=== PATIENT | male | born 1945 | race Two or more races ===

== ENCOUNTER → 2024-06-12 | Outpatient (CLI) | payer OTHER, MEDICAID, SELFPAY ==
--- NOTE | 2024-06-12 15:15 | XR_ITS ---
Examination: Ultrasound soft tissue extremity right buttock TECHNIQUE: By resolution grayscale sonographic images soft tissue right buttock Exam date and time: June 12, 2024 1411 hours INDICATIONS: Palpable lump of the right buttock region with pain radiating to the right leg beginning 2 months ago FINDINGS: Calcification versus solid mass in the buttock region 2.3 x 0.9 x 3.3 cm with dense shadowing IMPRESSION: Solid mass versus dense calcification in the right buttock 2.3 x 0.9 x 3.3 cm, consider CT pelvis without contrast follow-up
== END | disposition home or self-care (01) ==
PROVIDERS: PCP Physician Assistant; Referring Provider Physician Assistant; Visit Provider Physician Assistant
DX: R22.41 Localized swelling, mass and lump, right lower limb (principal)
CPT/HCPCS: 76882

== ENCOUNTER → 2024-09-03 | Outpatient (CLI) | payer MEDICARE, MEDICAID, SELFPAY ==
--- NOTE | 2024-09-03 09:26 | XR_ITS ---
Examination: MRI lumbar spine without contrast Date and time of exam: September 03, 2024 0950 hrs. Indications: Low back pain beginning January 2024 radiating to the right leg Technique: Multiple MRI axial and sagittal sections lumbar spine. Sagittal T2-weighted images, TR 3500, TE 118 T1 weighted transverse sections, TR 688 T8.5, T2-weighted sagittal sections T1 weighted sagittal sections TR 621, TE 30 T2 axial sections, TR 4, 190, TE 84. Findings: Adequate alignment lumbar vertebral bodies on the lateral view No lumbar fracture Adequate marrow signal lumbar vertebral bodies Advanced disc narrowing L5-S1 Diffuse lumbar disc desiccation L5-S1 6 mm central and bilateral paracentral right subarticular disc bulge extending to the right foramen with mild right L5 ganglionic compression L4-L5 3 mm central 6 mm right foraminal disc bulge with mild right L4 ganglionic compression L3-L4 4 mm left foraminal disc bulges but no ganglionic compression L2-L3 6 mm left foraminal disc bulge with mild left L2 ganglionic compression L1-L2 no disc protrusion Impression: Advanced degenerative disc disease L5-S1 L5-S1 6 mm central right subarticular disc bulge with mild right L5 ganglionic compression L4-L5 3 mm central 6 moderate right foraminal disc bulge with mild right L4 ganglionic compression L2-L3 6 mm left foraminal disc bulge mild left L3 ganglionic compression
== END | disposition home or self-care (01) ==
PROVIDERS: PCP Nurse Practitioner Family; Referring Provider Nurse Practitioner Family; Visit Provider Nurse Practitioner Family
DX: M51.379 Other intervertebral disc degeneration, lumbosacral region without mention of lumbar back pain or lower extremity pain (principal); G95.20 Unspecified cord compression
CPT/HCPCS: 72148

== ENCOUNTER 2025-04-03 09:05 | Inpatient (IN) | payer MEDICARE, MEDICAID, SELFPAY ==
[2025-04-03] VITALS (51 sets, daily range): BP systolic 83–163; BP diastolic 44–96; PULSE 61–120; RESP 15–88; TEMP 36–37; O2SAT 89–100; BMI 22.1
--- NOTE | 2025-04-03 09:29 | XR_ITS ---
Examination: PA lateral chest 2 views TECHNIQUE: Upright PA lateral chest 2 views Date and time: March 0939 hours, comparison March 06, 2020 INDICATIONS: Chest pain beginning 3 days ago. FINDINGS: Subtle opacities in the left lung Reduced inspiratory effort Normal heart size IMPRESSION: Suspicious for early diffuse left lung pneumonia
--- NOTE | 2025-04-03 09:29 | EKG_ITS ---
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
--- NOTE | 2025-04-03 09:29 | PD.EDRME ---
Rapid Medical Screening Exam RME Arrival date/time: 04/03/25 09:05 79-year-old male with a history of type 2 diabetes presents to the emergency room with a chief complaint of left-sided 7 out of 10 sternal chest pain and pain when he coughs x 4 days I have greeted and performed a focused initial assessment of this patient. A comprehensive ED assessment and evaluation of the patient, analysis of all test results, and completion of the medical decision making process will be conducted by additional ED providers. Chief Complaint: Nausea/Vomiting/Diarrhea Time Seen by Provider: 04/03/25 09:16 Vital signs: Vital Signs Temperature 98.4 F 04/03/25 09:14 Pulse Rate 75 04/03/25 09:14 Respiratory Rate 18 04/03/25 09:14 Blood Pressure 116/68 04/03/25 09:14 Pulse Oximetry (%) 93 L 04/03/25 09:14 Oxygen Delivery Method Room Air 04/03/25 09:14 Vital signs reviewed by provider: Yes
[2025-04-03 10:16] LABS: Basophils # (Auto) 0.1 Thou/mm3 (0.0-0.2); Basophils % (Auto) 0 % (0-2.5); Eosinophils # (Auto) 0.0 Thou/mm3 (0.0-0.5); Eosinophils % (Auto) 0 % (0-10); Hematocrit 45.5 % (41.0-53.0); Hemoglobin 15.5 g/dL (13.5-16.0); Immature Granulocytes Auto 0.13 Thou/mm3 (0.00-0.00); Lymphocytes # (Auto) 2.0 Thou/mm3 (1.0-4.8); Lymphocytes % (Auto) 12 % (10-50); Mean Corpuscular HGB Conc 34.1 g/dl (31.0-37.0); Mean Corpuscular Hemoglobin 32.2 pg (25.0-35.0); Mean Corpuscular Volume 95 fL (80-100); Monocytes # (Auto) 0.9 Thou/mm3 (0.0-0.8); Monocytes % (Auto) 6 % (0-12); Neutrophils # (Auto) 13.6 Thou/mm3 (1.8-7.7); Neutrophils % (Auto) 81 % (37-80); Nucleated Red Blood Cell # 0.00 Thou/mm3 (0.00-0.00); Nucleated Red Blood Cell % 0 /100 WBC (0); Platelet Count 217 Thou/mm3 (140-440); RDW Standard Deviation 45.6 fL (35.1-43.9); Red Blood Count 4.81 Miln/mm3 (4.50-5.90); White Blood Count 16.7 Thou/mm3 (3.8-10.6)
[2025-04-03 10:32] LABS: INR 1.1 (0.9-1.3); Partial Thromboplastin Time 29.6 Seconds (22.0-36.0); Prothrombin Time 12.0 Seconds (9.0-12.2)
[2025-04-03 10:34] LABS: B-Type Natriuretic Peptide 102 pg/mL (0-100)
[2025-04-03 10:40] LABS: Alanine Aminotransferase 27 U/L (10-49); Albumin, Serum 4.1 gm/dL (3.4-4.8); Albumin/Globulin Ratio 2.0 (1.2-2.2); Alkaline Phosphatase 80 U/L (46-116); Anion Gap 11 (7-16); Aspartate Amino Transferase 120 U/L (0-34); BUN/Creatinine Ratio 19 Ratio (12-20); Bilirubin,Total 1.2 mg/dL (0.3-1.2); Blood Urea Nitrogen 19 mg/dL (9-23); Calcium 9.2 mg/dL (8.3-10.6); Calcium (Corrected) 9.2 mg/dL (8.5-10.1); Carbon Dioxide 27.4 mMol/L (20.0-31.0); Chloride 100 mMol/L (98-107); Creatinine (Component) 1.0 mg/dL (0.6-1.3); Estimated Creatinine Clearance 55.2 mL/min (>60); Globulin 2.1 gm/dL (2.3-3.5); Glucose 189 mg/dL (74-106); Magnesium 2.0 mg/dL (1.6-2.6); Osmolality,Calculated 282 (275-295); Potassium 4.2 mMol/L (3.4-5.1); Sodium 138 mMol/L (136-145); Total Protein 6.2 gm/dL (5.7-8.2); eGFR > 60 See Note
[2025-04-03 10:45] LABS: Troponin I 11.928 ng/mL (0.0-0.045)
[2025-04-03 10:51] LABS: Collection Type, Urine Clean Catch; Squamous Epithelial Cell,Urine 0 /hpf (0-5)
[2025-04-03 11:04] LABS: Bilirubin,Urine Negative (Negative); Blood,Urine Negative (Negative); Clarity,Urine Clear (Clear/Hazy); Color,Urine Yellow (Lt Yel-Yel); Culture Indicated,Urine Not Indicated; Glucose, Urine 2+ (Negative); Ketones,Urine 2+ (Negative); Leukocyte Esterase,Urine Negative (Negative); Nitrite,Urine Negative (Negative); PH,Urine 6.0 (5.0-7.0); Protein,Urine Trace (Neg - Trace); RBC,Urine 3 /hpf (0-3); Specific Gravity,Urine 1.033 (1.001-1.035); Urobilinogen,Urine Negative mg/dL (0.0-1.0); WBC,Urine 1 /hpf (0-5)
--- NOTE | 2025-04-03 11:52 | PD.EDCHEST ---
ED Chest Pain RME/HPI General Chief Complaint: Nausea/Vomiting/Diarrhea Stated Complaint: Low BP, dizzy X 3 days, vomiting X 2 days Time Seen by Provider: 04/03/25 09:16 Arrival date/time: 04/03/25 09:05 RME / HPI RME / HPI narrative: 04/03/25 09:05 79-year-old male with a history of type 2 diabetes presents to the emergency room with a chief complaint of left-sided 7 out of 10 sternal chest pain and pain when he coughs x 4 days I have greeted and performed a focused initial assessment of this patient. A comprehensive ED assessment and evaluation of the patient, analysis of all test results, and completion of the medical decision making process will be conducted by additional ED providers. Related Data Home Medications ?Medication ?Instructions ?Recorded ?Confirmed albuterol sulfate 90 mcg/actuation 1 - 2 inh inhalation QID PRN 03/01/20 04/03/25 aerosol inhaler (Ventolin HFA) Shortness Of Breath Or Wheezing Held on 04/03/25. Instructions: Doctor's Order metformin 500 mg tablet 500 mg PO QDAY 03/01/20 04/03/25 multivitamin (One Daily 1 tab PO QDAY 03/01/20 04/03/25 Multivitamin tablet) ondansetron 4 mg disintegrating 4 mg PO Q6H PRN n/v 03/01/20 04/03/25 tablet Held on 04/03/25. Instructions: Doctor's Order zolpidem 10 mg tablet 10 mg PO HS PRN Insomnia 03/01/20 04/03/25 acetaminophen 325 mg capsule 325 mg PO Q6H PRN fever or pain 04/03/25 04/03/25 atorvastatin 20 mg tablet 20 mg PO QDAY 04/03/25 04/03/25 pregabalin 50 mg capsule (Lyrica) 50 mg PO QDAY 04/03/25 04/03/25 Allergies Allergy/AdvReac Type Severity Reaction Status Date / Time Poultry Allergy Verified 04/03/25 09:11 Course Orders Category Date Time Status EKG (ED ONLY) *Do not use* NOW Care 04/03/25 09:29 Completed Notify provider NOW Care 04/03/25 11:49 Active EKG (ED Only) Stat Exams 04/03/25 09:29 Draft XR chest 2V Stat Exams 04/03/25 09:29 Completed B-Type Natriuretic Peptide Stat Lab 04/03/25 09:52 Completed CBC Stat Lab 04/03/25 09:52 Completed Comprehensive Metabolic Panel Stat Lab 04/03/25 09:52 Completed Magnesium Stat Lab 04/03/25 09:52 Completed Partial Thromboplastin Time AM DRAW Lab 04/05/25 05:00 Ordered Partial Thromboplastin Time Stat Lab 04/03/25 09:52 Completed Prothrombin Time with INR AM DRAW Lab 04/05/25 05:00 Ordered Prothrombin Time with INR Stat Lab 04/03/25 09:52 Completed Troponin I Stat Lab 04/03/25 09:52 Completed Urinalysis, C/S if Indicated Stat Lab 04/03/25 10:46 Completed Heparin Drip Protocol ACS Med 04/03/25 12:00 Ordered Heparin/D5w 25K 250 ML Ivpb [Heparin in D5w Ivpb] 25,000 unit in 250 ml IV 12 units/kg/hr Heparin Inj Med 04/03/25 11:48 Once 3,850 unit IV X1 ONE Vital Signs Vital signs: Vital Signs Temperature 98.4 F 04/03/25 09:14 Pulse Rate 75 04/03/25 09:14 Respiratory Rate 18 04/03/25 09:14 Blood Pressure 116/68 04/03/25 09:14 Pulse Oximetry (%) 93 L 04/03/25 09:14 Oxygen Delivery Method Room Air 04/03/25 09:14 Chest Pain MDM Narrative MDM Narrative:: Patient is a 79-year-old male is in the emergency department concerns for chest pain for the last 3 days. Vital signs and exam as listed. Concern for ACS arrhythmia electrolyte abnormality metabolic disturbance among others. Prior provider Yair patient ordered EKG labs offered medication for symptom relief. Labs with evidence of leukocytosis 16.7, left shift of 81%. Patient hemoglobin is 15.5 platelets are normal. Patient without any coag abnormalities. No significant electrolyte abnormality patient glucose is 189 not in DKA. AST is 120 ALT 27 T. bili normal. Patient troponin 11.9. BNP 102. This appears to be patient's baseline BNP. Chest x-ray with findings concerning for possible early bilateral pneumonia. Urinalysis without evidence of infection. Reassessed patient, patient is complaining of persistent chest pain. Will provide patient with medications for symptom relief., Start patient on a heparin, consult cardiology. Medications / Prescriptions Medication administrations:: Medication Administration History Heparin Sodium (Porcine) (Heparin Sod Inj 5000 Unit/Ml Vial) 3,850 unit 60 unit/kg (3850 unit) IV X1 ONE; Protocol Stop: 04/03/25 11:49 Heparin Sodium/Dextrose (Heparin In D5w Ivpb) 25,000 unit in 250 mls @ 7.699 mls/hr IV .Q24H [facility]; Protocol Stop: 04/17/25 11:59 Discharge Plan Prescriptions/Referrals Prescriptions/Med Rec: No Action metformin 500 mg Tablet 500 mg PO QDAY Patient Comments: states he vomited after zolpidem 10 mg Tablet 10 mg PO HS PRN (Reason: Insomnia) albuterol sulfate [Ventolin HFA] 90 mcg/actuation Hfa Aerosol Inhaler 1 - 2 inh INHALATION QID PRN (Reason: Shortness Of Breath Or Wheezing) multivitamin [One Daily Multivitamin] Tablet 1 tab PO QDAY Patient Comments: take 1 tablet by mouth once daily ondansetron 4 mg tablet,disintegrating 4 mg PO Q6H PRN (Reason: n/v) pregabalin [Lyrica] 50 mg capsule 50 mg PO QDAY atorvastatin 20 mg tablet 20 mg PO QDAY acetaminophen 325 mg capsule 325 mg PO Q6H PRN (Reason: fever or pain) Patient Comments: states he takes prn, 1-2 tab when needed Referrals: Laly Robles [Primary Care Provider] - In 1 week Patient/Caregiver Discharge Instructions Print Language: Bahraini
--- NOTE | 2025-04-03 11:58 | PD.EDCHEST ---
ED Chest Pain RME/HPI General Chief Complaint: Nausea/Vomiting/Diarrhea Stated Complaint: Low BP, dizzy X 3 days, vomiting X 2 days Time Seen by Provider: 04/03/25 09:16 Arrival date/time: 04/03/25 09:05 Limitations: no limitations RME / HPI RME / HPI narrative: 04/03/25 09:05 79-year-old male with a history of type 2 diabetes presents to the emergency room with a chief complaint of left-sided 7 out of 10 sternal chest pain and pain when he coughs x 4 days I have greeted and performed a focused initial assessment of this patient. A comprehensive ED assessment and evaluation of the patient, analysis of all test results, and completion of the medical decision making process will be conducted by additional ED providers. DR. FOOTE MAIN ED EVALUATION 79 year old male with history of hypertension, diabetes, and hyperlipidemia presents to the ED for evaluation of chest pain beginning 2 days ago. Described as aching in sensation that is located most to the left-side of chest with radiation to his back, rating 7/10. Accompanied by cold sweats, feeling clammy, and nausea. Per son, blood pressure this morning while feeling clammy was 60s systolic and shortly after repeated pressure that was 133s systolic. Patient denies any history of similar pain or symptoms. Denies any previous heart attacks or cardiac events. Related Data Home Medications ?Medication ?Instructions ?Recorded ?Confirmed albuterol sulfate 90 mcg/actuation 1 - 2 inh inhalation QID PRN 03/01/20 04/03/25 aerosol inhaler (Ventolin HFA) Shortness Of Breath Or Wheezing Held on 04/03/25. Instructions: Doctor's Order metformin 500 mg tablet 500 mg PO QDAY 03/01/20 04/03/25 multivitamin (One Daily 1 tab PO QDAY 03/01/20 04/03/25 Multivitamin tablet) ondansetron 4 mg disintegrating 4 mg PO Q6H PRN n/v 03/01/20 04/03/25 tablet Held on 04/03/25. Instructions: Doctor's Order zolpidem 10 mg tablet 10 mg PO HS PRN Insomnia 03/01/20 04/03/25 acetaminophen 325 mg capsule 325 mg PO Q6H PRN fever or pain 04/03/25 04/03/25 atorvastatin 20 mg tablet 20 mg PO QDAY 04/03/25 04/03/25 pregabalin 50 mg capsule (Lyrica) 50 mg PO QDAY 04/03/25 04/03/25 Allergies Allergy/AdvReac Type Severity Reaction Status Date / Time Poultry Allergy Verified 04/03/25 09:11 Review of Systems Review of Systems Systems Reviewed: All systems reviewed, normal except as documented Past Medical History Past Medical History CARDIAC: Positive Hypertension ENDOCRINE: Positive Diabetes Mellitus Type 2 Social History SMOKING STATUS: Never smoker ED Exam General Limitations: Present no limitations General appearance: Present alert and other (chronically ill appearing with acute decompensation) Head Head exam: Present atraumatic, normocephalic and normal inspection Eye Eye exam: Present normal appearance, PERRL and EOMI ENT ENT exam: Present normal exam, normal oropharynx and mucous membranes moist Neck Neck exam: Present normal inspection, full ROM and trachea midline Chest Chest inspection: Present normal inspection and symmetric chest wall rise Respiratory Respiratory exam: Present normal lung sounds bilaterally Cardiovascular Cardiovascular exam: Present regular rate, normal rhythm and normal heart sounds Abdominal Exam Abdominal exam: Present soft and normal bowel sounds Extremities Exam Extremities exam: Present normal inspection and full ROM Back Exam Back exam: Present normal inspection and full ROM Neurological Exam Neurological exam: Present alert, oriented X3 and CN II-XII intact Psychiatric Psychiatric exam: Present normal affect and normal mood Skin Skin exam: Present warm, dry, intact and normal color Course Quality Measures none Orders Category Date Time Status Admit to Inpatient Status Routine Admission 04/03/25 12:42 Active Patient Condition Routine Admission 04/03/25 12:42 Ordered EKG (ED ONLY) *Do not use* NOW Care 04/03/25 09:29 Completed Miscellaneous Nursing Order NOW Care 04/03/25 12:42 Active NPO NOW Care 04/03/25 12:46 Active Notify provider NEEDED Care 04/03/25 12:42 Active Notify provider NOW Care 04/03/25 11:49 Active Diet NPO (NOW) Diet 04/03/25 12:46 Active CA echo doppler complete Routine Exams 04/03/25 12:49 Ordered CCL heart cath LT ventricle Routine Exams 04/03/25 12:18 Ordered EKG (ED Only) Stat Exams 04/03/25 09:29 Draft XR chest 2V Stat Exams 04/03/25 09:29 Completed B-Type Natriuretic Peptide Stat Lab 04/03/25 09:52 Completed CBC AM DRAW Lab 04/04/25 05:00 Ordered CBC AM DRAW Lab 04/05/25 05:00 Ordered CBC AM DRAW Lab 04/06/25 05:00 Ordered CBC Stat Lab 04/03/25 09:52 Completed Comprehensive Metabolic Panel AM DRAW Lab 04/04/25 05:00 Ordered Comprehensive Metabolic Panel AM DRAW Lab 04/05/25 05:00 Ordered Comprehensive Metabolic Panel AM DRAW Lab 04/06/25 05:00 Ordered Comprehensive Metabolic Panel Stat Lab 04/03/25 09:52 Completed Magnesium Stat Lab 04/03/25 09:52 Completed Partial Thromboplastin Time AM DRAW Lab 04/05/25 05:00 Ordered Partial Thromboplastin Time Stat Lab 04/03/25 09:52 Completed Prothrombin Time with INR AM DRAW Lab 04/05/25 05:00 Ordered Prothrombin Time with INR Stat Lab 04/03/25 09:52 Completed Thyroid Stimulating Hormone Routine Lab 04/04/25 12:48 Ordered Troponin I Stat Lab 04/03/25 09:52 Completed Urinalysis, C/S if Indicated Stat Lab 04/03/25 10:46 Completed Acetaminophen Tab [Tylenol Tab] Med 04/03/25 12:42 Ordered 650 mg PO Q6H PRN Aspirin Chew Med 04/03/25 11:53 Discontinued 162 mg PO X1 ONE Atropine Inj Vial Med 04/03/25 12:26 Discontinued 1 mg .ROUTE .STK-MED ONE Bivalirudin Ivpb [Angiomax Ivpb] Med 04/03/25 12:29 Discontinued 250 mg IV .STK-MED ONE EPINEPHrine Inj Abboject Med 04/03/25 12:27 Discontinued 1 mg .ROUTE .STK-MED ONE Heparin Inj Med 04/03/25 11:48 Discontinued 3,850 unit IV X1 ONE Heparin* 1000 UNITS/ML- 10 ML [Heparin 1000 UNITS/ML- Med 04/03/25 12:27 Discontinued 10 ML] 30,000 unit .ROUTE .STK-MED ONE Heparin/D5w 25K 250 ML Ivpb [Heparin in D5w Ivpb] Med 04/03/25 12:00 Active 25,000 unit in 250 ml IV 12 units/kg/hr Lidocaine 1% Pf 30 ml [Xylocaine 1% Pf 30 ml] Med 04/03/25 12:27 Discontinued 30 ml .ROUTE .STK-MED ONE Midazolam Inj [Versed Inj] Med 04/03/25 12:26 Discontinued 2 mg .ROUTE .STK-MED ONE Morphine* Inj Med 04/03/25 11:54 Discontinued 2 mg IVP X1 ONE NALOXONE INJ (Vial) [Narcan Inj (Vial)] Med 04/03/25 12:26 Discontinued 0.4 mg .ROUTE .STK-MED ONE Nitroglycerin/D5w 50 MG IVPB [Nitroglycerin in D5w Ivpb Med 04/03/25 12:27 Discontinued ] 50 mg in 250 ml .ROUTE .STK-MED Ondansetron Inj [Zofran Inj] Med 04/03/25 12:42 Ordered 4 mg IVP Q6H PRN PHENYLEPHRINE INJ in NS [Axel-synephrine Inj/Ns] Med 04/03/25 12:27 Discontinued 1,000 mcg .ROUTE .STK-MED ONE Pantoprazole [Protonix] Med 04/04/25 09:00 Ordered 40 mg PO QDAY Senna [Senokot] Med 04/03/25 12:47 Ordered 1 tab PO QDAY PRN Verapamil Inj [Calan Inj] Med 04/03/25 12:27 Discontinued 5 mg .ROUTE .STK-MED ONE cefTRIAXone/D5w 1gm IV premix [Rocephin/D5w 1gm IV Med 04/03/25 11:55 Discontinued premix] 1 gm in 50 ml IV STAT fentaNYL INJ [Sublimaze Inj] Med 04/03/25 12:26 Discontinued 100 mcg .ROUTE .STK-MED ONE flumazeniL [Romazicon Inj] Med 04/03/25 12:27 Discontinued 1 mg .ROUTE .STK-MED ONE Code Status Routine Oth 04/03/25 12:42 Ordered Vital Signs Vital signs: Vital Signs Temperature 98.4 F 04/03/25 09:14 Pulse Rate 75 04/03/25 09:14 Respiratory Rate 18 04/03/25 09:14 Blood Pressure 116/68 04/03/25 09:14 Pulse Oximetry (%) 93 L 04/03/25 09:14 Oxygen Delivery Method Room Air 04/03/25 09:14 Pulse ox is 93% on room air which is adequate. Chest Pain MDM Narrative MDM Narrative:: Vanessa Morse am scribing for and in the presence of Dr. Foote. 11:55a I spoke with churn drill operator Dr. Nguyen. Discussed patients PMHx, HPI, ED course, labs, and EKG results. He advised admitting the patient and agrees to consult. 11:57a I spoke with hospitalist team B regarding admission. Patient data External records reviewed:: [facility] previous records Clinical information provided by:: patient Social determinants that could affect healthcare access:: alcohol use (social drinker) Patient has the following chronic illnesses:: HTN, DM, HLD How is presenting disease/condition affected by chronic disease/condition?: exacerbated by Evaluation data The following diagnostics were reviewed and interpreted by me:: lab results, radiology exam(s) and EKG tracing(s) Lab and/or radiology exams considered but not ordered:: None Interpretation Summary: See MDM Medications / Prescriptions Medications or Prescriptions considered but not ordered:: None Medication administrations:: Medication Administration History Heparin Sodium/Dextrose (Heparin In D5w Ivpb) 25,000 unit in 250 mls @ 7.699 mls/hr IV .Q24H [facility]; Protocol Stop: 04/17/25 11:59 Discontinued Medications Aspirin (Aspirin 81 Mg Chew) 162 mg PO X1 ONE Stop: 04/03/25 11:54 Last Admin: 04/03/25 12:18 Dose: 162 mg Documented By: BY Atropine Sulfate (Atropine Sulf Inj 1 Mg/Ml Vial) Confirm Administered Dose 1 mg .ROUTE .STK-MED ONE Stop: 04/03/25 12:27 Bivalirudin (Bivalirudin Ivpb 250 Mg/ 50 Ml Bottle) Confirm Administered Dose 250 mg IV .STK-MED ONE Stop: 04/03/25 12:30 Epinephrine HCl (Epinephrine Inj 0.1 Mg/Ml Syringe 10ml) Confirm Administered Dose 1 mg .ROUTE .STK-MED ONE Stop: 04/03/25 12:28 Fentanyl Citrate (Fentanyl Cit Inj 50 Mcg/Ml Amp 2ml) Confirm Administered Dose 100 mcg .ROUTE .STK-MED ONE Stop: 04/03/25 12:27 Flumazenil (Flumazenil Inj 0.1 Mg/Ml Vial 10 Ml) Confirm Administered Dose 1 mg .ROUTE .STK-MED ONE Stop: 04/03/25 12:28 Heparin Sodium (Porcine) (Heparin Sod Inj 5000 Unit/Ml Vial) 3,850 unit 60 unit/kg (3850 unit) IV X1 ONE; Protocol Stop: 04/03/25 11:49 Last Admin: 04/03/25 12:33 Dose: 3,850 unit Documented By: BY Co-signed By: BEN Heparin Sodium (Porcine) (Heparin Sod Inj 1000 Unit/Ml Vial 10 Ml) Confirm Administered Dose 30,000 unit .ROUTE .STK-MED ONE Stop: 04/03/25 12:28 Ceftriaxone Sodium/Dextrose (Rocephin/D5w 1gm Iv Premix) 1 gm in 50 mls @ 100 mls/hr IV STAT STA Stop: 04/03/25 12:24 Last Admin: 04/03/25 12:15 Dose: 100 mls/hr Documented By: BY Nitroglycerin/Dextrose (Nitroglycerin In D5w Ivpb) Confirm Administered Dose 50 mg in 250 mls @ ud .ROUTE .STK-MED ONE Stop: 04/03/25 12:28 Lidocaine HCl (Lidocaine Inj Pf 1% 30 Ml Vial) Confirm Administered Dose 30 ml .ROUTE .STK-MED ONE Stop: 04/03/25 12:28 Midazolam HCl (Midazolam Inj 1 Mg/Ml Vial 2 Ml) Confirm Administered Dose 2 mg .ROUTE .STK-MED ONE Stop: 04/03/25 12:27 Morphine Sulfate (Morphine Sulf Inj 4 Mg/Ml Vial) 2 mg IVP X1 ONE Stop: 04/03/25 11:55 Last Admin: 04/03/25 12:19 Dose: 2 mg Documented By: BY Naloxone HCl (Naloxone Inj 0.4 Mg/Ml Vial) Confirm Administered Dose 0.4 mg .ROUTE .STK-MED ONE Stop: 04/03/25 12:27 Phenylephrine HCl (Phenylephrine Inj In Ns 100 Mcg/Ml 10 Ml Syringe) Confirm Administered Dose 1,000 mcg .ROUTE .STK-MED ONE Stop: 04/03/25 12:28 Verapamil HCl (Verapamil Inj 2.5 Mg/Ml Vial 2 Ml) Confirm Administered Dose 5 mg .ROUTE .STK-MED ONE Stop: 04/03/25 12:28 See above Consultations Consultation(s) initiated? (list below): Yes Consultation #1 (Physician, Specialty, Details): See MDM Diagnosis Most likely diagnosis given after review of the tests above:: NSTEMI PNA Chest pain Admission Indicated Admission indicated?: indicated Admission Request Was there a request for admission?: Yes Admission Attestation Admission request attestation: Discussed case with [] from Hospitalist service regarding admission. Discussed patients ED course, exam findings, labs, and radiology results. The Hospitalist [agrees,declines] to accept the patient for admission. Disposition Plan Disposition Plan: Admit Critical Care Time Critical Care Time Critical Care Time: Yes Total Critical Care Time (min.): 35 Attestation: The high probability of sudden, clinically significant deterioration in the patient's condition required the highest level of my preparedness to intervene urgently. The services I provided to this patient were to treat and/or prevent clinically significant deterioration. Services included the following: chart data review, reviewing nursing notes and/or old charts, documentation time, senior recruitment consultant collaboration regarding findings and treatment options, medication orders and management, direct patient care, vital sign assessments and ordering, interpreting and reviewing diagnostic studies and lab tests. Aggregate critical care time includes only time during which I was engaged in work directly related to the patient's care, as described above, whether at bedside or elsewhere in the Emergency Department. It did not include time spent performing other reported procedures or the services of residents, students, nurses or physician assistants. Discharge Plan Plan Patient Disposition: Admit Acute Care w/in Hospital Prescriptions/Referrals Prescriptions/Med Rec: No Action metformin 500 mg Tablet 500 mg PO QDAY Patient Comments: states he vomited after zolpidem 10 mg Tablet 10 mg PO HS PRN (Reason: Insomnia) albuterol sulfate [Ventolin HFA] 90 mcg/actuation Hfa Aerosol Inhaler 1 - 2 inh INHALATION QID PRN (Reason: Shortness Of Breath Or Wheezing) multivitamin [One Daily Multivitamin] Tablet 1 tab PO QDAY Patient Comments: take 1 tablet by mouth once daily ondansetron 4 mg tablet,disintegrating 4 mg PO Q6H PRN (Reason: n/v) pregabalin [Lyrica] 50 mg capsule 50 mg PO QDAY atorvastatin 20 mg tablet 20 mg PO QDAY acetaminophen 325 mg capsule 325 mg PO Q6H PRN (Reason: fever or pain) Patient Comments: states he takes prn, 1-2 tab when needed Referrals: Laly Robles [Primary Care Provider] - In 1 week Problem List Clinical Impression: Non-ST elevation [place] (NSTEMI), Chest pain, Pneumonia Patient/Caregiver Discharge Instructions Print Language: Swedish Stand Alone Forms: Jessica Award Info., Patient Portal Info Letter
[2025-04-03] MEDS: cefTRIAXone/D5w 1gm IV premix 1 GM/50 ML BAG IV (12:15)
[2025-04-03] MEDS: ASPIRIN 81 MG CHEW 162 MG PO (12:18)
[2025-04-03] MEDS: MORPHINE SULF INJ 4 MG/ML VIAL 2 MG IVP (12:19)
[2025-04-03] MEDS: HEPARIN SOD INJ 5000 UNIT/ML VIAL 3850 UNIT IV (12:33)
--- NOTE | 2025-04-03 12:37 | PC.NURSE ---
patient just picked up for manager cath lab by surgery dept , report given to surgery
--- NOTE | 2025-04-03 12:50 | PD.RESHP ---
Documentation for date of: 04/03/25 [facility] History of Present Illness Chief complaint: chest pain History of present illness: Patient is Eritrean-speaking and history is taken with the help of insole beveler A 79-year-old male with significant past medical history of diabetes mellitus, hypertension, hyperlipidemia, history of COVID infection presented to the hospital with chief complaints of history of chest pain since 3 days. Chest pain is located in the left side, radiating to the left shoulder, on and off, denies associated shortness of breath, nausea, vomiting, sweating. Denies any aggravating and relieving factors and does not change with inspiration or change in the position. Denies any similar complaints in the past. Denies fever, nausea, vomitings, abdominal pain, cough, syncopal episodes, orthopnea, PND. Denies any previous cardiac history. ED course: - Vitals at the time of admission are stable - Labs at the time of admission are significant for WBC 16.7, troponin 11.9-8, AST 120. - Urinalysis significant for 2+ glucosuria and 2+ ketones. - EKG at the time of admission showed normal sinus rhythm with left axis deviation, T wave inversions in lead III, aVF, poor R wave progression. - Chest x-ray at the time of admission showed mild infiltrates in the left lung Past medical history: Diabetes mellitus, hypertension, hyperlipidemia, COVID infection Past surgical history: Not significant Social history: Lives at home in [place] with his family. Denies smoking, other illicit drug abuse. Reported that he stopped consuming alcohol many years ago. Review of Systems Review of Systems Systems Reviewed: All systems reviewed, normal except as documented Past Medical History Past Medical History CARDIAC: Positive Hypertension ENDOCRINE: Positive Diabetes Mellitus Type 2 Social History SMOKING STATUS: Never smoker Exam Vital Signs Temp Pulse Resp BP Pulse Ox O2 Del Method 98.5 F 63 18 117/61 97 Room Air 04/03/25 11:13 04/03/25 12:14 04/03/25 12:14 04/03/25 12:14 04/03/25 12:14 04/03/25 12:14 Narrative Exam General: Awake. HEENT: Normocephalic, atraumatic, mucous membranes moist. Heart: Regular rate and rhythm, no murmurs. Lungs: Clear to auscultation with no wheezing or crackles. Abdomen: Soft, nondistended, nontender, positive bowel sounds. ?No guarding or rebound tenderness. Neurologic: Alert and oriented x3, no gross neurological deficit, and patient able to move all 4 extremities. Extremities: No edema. Skin: No rash or ecchymoses. Results: Labs 04/04/25 04:48 04/04/25 04:48 Labs: Short CBC 04/03/25 Range/Units 09:52 WBC 16.7 H (3.8-10.6) Thou/mm3 Hgb 15.5 (13.5-16.0) g/dL Hct 45.5 (41.0-53.0) % Plt Count 217 (140-440) Thou/mm3 BMP 04/03/25 09:52 Sodium 138 Potassium 4.2 Chloride 100 Carbon Dioxide 27.4 BUN 19 Creatinine 1.0 Glucose 189 H Calcium 9.2 Cardiac Enzymes 04/03/25 Range/Units 09:52 Troponin I 11.928 H* (0.0-0.045) ng/mL Liver Function 04/03/25 Range/Units 09:52 Total Bilirubin 1.2 (0.3-1.2) mg/dL AST 120 H (0-34) U/L ALT 27 (10-49) U/L Alkaline Phosphatase 80 (46-116) U/L Albumin 4.1 (3.4-4.8) gm/dL Urine 04/03/25 Range/Units 10:46 Urine Color Yellow (Lt Yel-Yel) Urine Clarity Clear (Clear/Hazy) Urine pH 6.0 (5.0-7.0) Ur Specific [place] 1.033 (1.001-1.035) Urine Protein Trace (Neg - Trace) Urine Glucose (UA) 2+ A (Negative) Quality Measures Quality Measures none Advance care planning discussed with:: patient Medications Home Medications and Allergies Home Medications ?Medication ?Instructions ?Recorded ?Confirmed ?Type albuterol sulfate 90 mcg/actuation 1 - 2 inh inhalation QID PRN 03/01/20 04/03/25 History aerosol inhaler (Ventolin HFA) Shortness Of Breath Or Wheezing Held on 04/03/25. Instructions: Doctor's Order metformin 500 mg tablet 500 mg PO QDAY 03/01/20 04/03/25 History multivitamin (One Daily 1 tab PO QDAY 03/01/20 04/03/25 History Multivitamin tablet) ondansetron 4 mg disintegrating 4 mg PO Q6H PRN n/v 03/01/20 04/03/25 History tablet Held on 04/03/25. Instructions: Doctor's Order zolpidem 10 mg tablet 10 mg PO HS PRN Insomnia 03/01/20 04/03/25 History acetaminophen 325 mg capsule 325 mg PO Q6H PRN fever or pain 04/03/25 04/03/25 History atorvastatin 20 mg tablet 20 mg PO QDAY 04/03/25 04/03/25 History pregabalin 50 mg capsule (Lyrica) 50 mg PO QDAY 04/03/25 04/03/25 History Allergies Allergy/AdvReac Type Severity Reaction Status Date / Time Poultry Allergy Verified 04/03/25 09:11 Visit Medications Acetaminophen (Acetaminophen 325 Mg Tablet) 650 mg PO Q6H PRN PRN Reason: Fever >101.5 Stop: 05/03/25 12:41 Heparin Sodium/Dextrose (Heparin In D5w Ivpb) 25,000 unit in 250 mls @ 7.699 mls/hr IV .Q24H BENNETT; Protocol Stop: 04/17/25 11:59 Ondansetron HCl (Ondansetron Inj 2 Mg/Ml Inj 2 Ml) 4 mg IVP Q6H PRN; Protocol PRN Reason: NAUSEA OR VOMITING Stop: 05/03/25 12:41 Pantoprazole Sodium (Pantoprazole 40 Mg Tablet) 40 mg PO QDAY BENNETT Stop: 05/04/25 08:59 Sennosides (Senna Tablet) 1 tab PO QDAY PRN; Protocol PRN Reason: constipation Stop: 05/03/25 12:46 Discontinued Medications Aspirin (Aspirin 81 Mg Chew) 162 mg PO X1 ONE Stop: 04/03/25 11:54 Last Admin: 04/03/25 12:18 Dose: 162 mg Heparin Sodium (Porcine) (Heparin Sod Inj 5000 Unit/Ml Vial) 3,850 unit 60 unit/kg (3850 unit) IV X1 ONE; Protocol Stop: 04/03/25 11:49 Last Admin: 04/03/25 12:33 Dose: 3,850 unit Ceftriaxone Sodium/Dextrose (Rocephin/D5w 1gm Iv Premix) 1 gm in 50 mls @ 100 mls/hr IV STAT STA Stop: 04/03/25 12:24 Last Admin: 04/03/25 12:15 Dose: 100 mls/hr Morphine Sulfate (Morphine Sulf Inj 4 Mg/Ml Vial) 2 mg IVP X1 ONE Stop: 04/03/25 11:55 Last Admin: 04/03/25 12:19 Dose: 2 mg Assessment & Plan Plan A 79-year-old male with significant past medical history of diabetes mellitus, hypertension, hyperlipidemia, history of COVID infection presented to the hospital with chief complaints of history of chest pain since 3 days # NSTEMI type I - Patient presented to the hospital with chief complaints of chest pain since 3 days - Chest pain mainly located in the left side and reported radiating to the shoulder. On and off without any other associated symptoms - Vitals at the time of admission are stable - EKG at the time of admission showed normal sinus rhythm with left axis deviation, T wave inversions in lead II and III, poor R wave progression - Troponin at the time of admission is 11.928 Plan - Patient was started on heparin drip and loading dose of aspirin 325 mg is given - Consulted special warfare boat operator, Dr. Nguyen - Patient is taken to Criminal Justice Lawyer # Leukocytosis, reactive versus infectious - WBC at the time of admission is 16.7 - Patient denies history of fever, shortness of breath, nausea, vomitings, abdominal pain, headache Plan - Patient is started on ceftriaxone 1 g IV daily in view of suspected underlying underlying pneumonia due to infiltrates found on chest x-ray # Diabetes mellitus - Glucose at the time of admission is 189 - Patient is using metformin 500 mg daily as per med rec Plan - Ordered HbA1c - Started on insulin sliding scale # Hypertension - Vitals at the time of admission are stable Plan - Will continue to monitor blood pressures and add antihypertensives as needed # Hyperlipidemia - Patient is using atorvastatin 20 mg once daily - Lipid profile is ordered Plan - Will start on atorvastatin 40 mg at bedtime Hospital Maintenance: Dispo: Tele DVT ppx: Heparin drip GI ppx: Protonix Diet: NPO IV lines: peripheral Code status: Full Patient plan of care was discussed with the attending physician, Dr. Klaudia Ko, PGY2 Attending Provider Attestation/Addendum I have discussed and was present for the essential components of the history, physical examination, diagnosis, and treatment plan with the resident. I agree with the patient's care as documented by the resident and amended herein by me. Kuldeep Rudolph DO. Although this document has been carefully reviewed, there may still be some phonetic and other typographical errors. These errors are purely grammatical due to imperfections in the software program and should not be construed in any way to compromise the substance of the patient's medical care during this visit.
[2025-04-03 13:30] LABS: Cardiac Risk Estimate 2.1 RATIO (4.0-6.7); Cholesterol 124 mg/dL (132-200); HDL Cholesterol 59 mg/dL (40-60); LDL Cholesterol,Calculated 51 mg/dL (0-130); Triglycerides 70 mg/dL (30-150)
[2025-04-03] MEDS: EPTIFIBATIDE IVPB 75 MG/100 ML VIAL 10.265 MG IV (14:07)
--- NOTE | 2025-04-03 14:10 | ESOP_ITS ---
Cardiac Cath Procedure Procedure Narrative Procedure date 04/03/2025 Title of the procedure 1.left heart catheterization 2.left coronary angiogram 3.right coronary angiogram 4.left ventriculogram 5.conscious sedation 6.radiographic interpretation supervision 7.ultrasound guidance for right Femoral access 8.angioplasty and stent placement of the RCA 9.temporary transvenous pacemaker placement 10.intracoronary nitroglycerin and adenosine infusion Indication for the procedure This is a 79-year-old gentleman with past medical history of hypertension diabetes hyperlipidemia Complains of recurrent anterior chest pain started earlier in the day today Initial EKG showed [address] elevation in the lead aVF Patient was complaining of ongoing chest pain Therefore we decided to do cardiac cath and coronary angiogram For STEMI Procedure This was done in the cardiac lab under current electrocardiographic monitoring Intermittent blood pressure monitoring right radial access obtained using modified Seldinger technique and ultrasound guidance 6 [place] sheath was placed We attempted to obtain radial access however due to heavy calcification the guidewire would not advance beyond the brachial point Therefore we decided to proceed with right femoral access JL 4 catheter used for selective renal left coronary artery JR4 catheter used for selective right coronary artery Pigtail catheter used for left ventriculogram Hemodynamics Normal Approximate ejection fraction 55% End-diastolic pressure was 10 mmHg There is no gradient across the aortic valve Coronary anatomy 1.left main coronary artery appears normal 2.left anterior descending artery does not seem to have any significant lesion 3.diagonal appears to have luminal irregularities 4.circumflex does not seem to have any significant lesion 5.obtuse marginal appears to be normal 6.right coronary is a dominant vessel that is occluded 100% in the midsegment Conclusion Occluded right coronary artery We will proceed with intervention Balloon angioplasty and stent placement of the right coronary artery JR4 guiding catheter used to obtain coaxial access Pharmacy Operations Manager 50 wire was used to cross the lesion 2 x 12 mm balloon was used to predilate the occluded region Subsequently 3 x 38 mm stent was placed across the lesion and dilated up to 9 breezy At this point patient developed no reflow phenomenon At this point we proceeded to do nitroglycerin intracoronary, adenosine intracoronary Patient blood pressure dropped to 50/40 Patient's heart rate dropped to 35 junctional rhythm A temporary transvenous pacemaker was placed to the right femoral vein The heart rate was set at 100 bpm With this treatment the patient's blood pressure and heart rate improved Repeat angiogram reveals NAOMI-3 flow to the distal circulation At this point 3 x 20 mm noncompliant balloon was used to post dilate the stent up to 15 breezy Post angiogram reveals adequate expansion of the entire length of the stent Conclusion Successful angioplasty and stent placement to mid RCA
--- NOTE | 2025-04-03 14:18 | PD.IMCONS ---
HPI Data of Consult Primary Care Provider: Laly Robles Consult Narrative History of present illness: This is a 79-year-old gentleman with past medical history of hypertension diabetes hyperlipidemia Patient started having chest pain 2 days ago subsequently it improved initial episode was associated with some diaphoresis as per the son Subsequently the pain started again today morning therefore patient was brought to the emergency room In the emergency room patient was complaining of 7 out of 10 chest pain Initial blood pressure 117/61 Heart rate was 63 EKG shows Q waves in the inferior leads with T inversion Half to [address] elevation noted in lead III, patient's troponin is 11 Therefore STEMI alert was called patient was taken to the Breaker Machine Operator cc:: cc: Meds Home Medications and Allergies Home Medications ?Medication ?Instructions ?Recorded ?Confirmed ?Type albuterol sulfate 90 mcg/actuation 1 - 2 inh inhalation QID PRN 03/01/20 04/03/25 History aerosol inhaler (Ventolin HFA) Shortness Of Breath Or Wheezing Held on 04/03/25. Instructions: Doctor's Order metformin 500 mg tablet 500 mg PO QDAY 03/01/20 04/03/25 History multivitamin (One Daily 1 tab PO QDAY 03/01/20 04/03/25 History Multivitamin tablet) ondansetron 4 mg disintegrating 4 mg PO Q6H PRN n/v 03/01/20 04/03/25 History tablet Held on 04/03/25. Instructions: Doctor's Order zolpidem 10 mg tablet 10 mg PO HS PRN Insomnia 03/01/20 04/03/25 History acetaminophen 325 mg capsule 325 mg PO Q6H PRN fever or pain 04/03/25 04/03/25 History atorvastatin 20 mg tablet 20 mg PO QDAY 04/03/25 04/03/25 History pregabalin 50 mg capsule (Lyrica) 50 mg PO QDAY 04/03/25 04/03/25 History Allergies Allergy/AdvReac Type Severity Reaction Status Date / Time Poultry Allergy Verified 04/03/25 09:11 Exam Vital Signs Temp Pulse Resp BP Pulse Ox O2 Del Method 98.5 F 63 18 117/61 97 Room Air 04/03/25 11:13 04/03/25 12:14 04/03/25 12:14 04/03/25 12:14 04/03/25 12:14 04/03/25 12:14 Routine HEENT Exam Head: Present normocephalic and atraumatic Eye: Present EOMI and PERRL ENT: Present mucous membranes moist Routine Neck Exam Neck: Present supple and trachea midline Routine Respiratory Exam Respiratory: Present chest non-tender, lungs clear, normal breath sounds and no resp distress Routine Cardiovascular Exam Cardiovascular: Present RRR Routine Abdominal Exam Abdominal: Present soft and normoactive bowel sounds Routine Extremities Exam Extremities: Present full ROM Routine Skin Exam Skin: Present intact, dry and warm Routine Neurological Exam Neurological: Present alert, oriented X3 and CN II-XII intact Routine Psychiatric Exam Psychiatric: Present normal affect and normal thought process Results Labs 04/03/25 09:52 04/03/25 09:52 Labs: Short CBC 04/03/25 Range/Units 09:52 WBC 16.7 H (3.8-10.6) Thou/mm3 Hgb 15.5 (13.5-16.0) g/dL Hct 45.5 (41.0-53.0) % Plt Count 217 (140-440) Thou/mm3 BMP 04/03/25 09:52 Sodium 138 Potassium 4.2 Chloride 100 Carbon Dioxide 27.4 BUN 19 Creatinine 1.0 Glucose 189 H Calcium 9.2 Cardiac Enzymes 04/03/25 Range/Units 09:52 Troponin I 11.928 H* (0.0-0.045) ng/mL Liver Function 04/03/25 Range/Units 09:52 Total Bilirubin 1.2 (0.3-1.2) mg/dL AST 120 H (0-34) U/L ALT 27 (10-49) U/L Alkaline Phosphatase 80 (46-116) U/L Albumin 4.1 (3.4-4.8) gm/dL Urine 04/03/25 Range/Units 10:46 Urine Color Yellow (Lt Yel-Yel) Urine Clarity Clear (Clear/Hazy) Urine pH 6.0 (5.0-7.0) Ur Specific [place] 1.033 (1.001-1.035) Urine Protein Trace (Neg - Trace) Urine Glucose (UA) 2+ A (Negative) Assessment and Plan Assessment and plan (1) Acute myocardial infarction: Status: Acute (2) Coronary artery disease: Status: Acute (3) Hypertension: Status: Acute (4) Diabetes 1.5, managed as type 2: Status: Acute (5) Hyperlipidemia: Status: Acute (6) Chest pain: Status: Acute Additional Assessment & Plan Additional Plan: In view of patient's ongoing chest pain 7 out of 10 EKG showing Q waves and T inversion with possible ST elevation in lead III We will proceed with cardiac cath and coronary angiogram urgently Procedure risk-benefit was explained to the patient
--- NOTE | 2025-04-03 15:23 | PD.INTCONS ---
HPI - Warehouse Person Consult Data of Consult Requesting Physician: Viktoria Hope MD Primary Care Provider: Laly Robles Consult Narrative History of present illness: This is a 79-year-old male Italian-speaking who presents to the ER for chest pain. Apparently he had been experiencing chest pain for the last 3 days. It was located on the left side of his chest and has been constant with no radiation however he did tell the admitting team that he had radiation to the left arm.. States that he did feel nauseous and clammy at home. Pain became worse reason for which he presented to the ER today. At time of arrival to the ER he was noted to have positive troponins of 11 with some EKG changes. Cardiology consult was called and the patient was taken to the Insole Doubler. The patient had a stent placed to the RCA. He became bradycardic during the procedure and was temporarily placed on a pacer. However he then developed A-fib which was treated the patient is currently in sinus rhythm. Upon arrival to the ICU the patient was noted to have a large right groin hematoma. He is on an Integrilin drip. PMH: Diabetes, hypertension, dyslipidemia PSH: Denies smoking or alcohol use ROS: As per HPI otherwise negative cc:: cc: Viktoria Hope MD Critical Care Note Critical care time (min.): 68 Meds Home Medications and Allergies Home Medications ?Medication ?Instructions ?Recorded ?Confirmed ?Type albuterol sulfate 90 mcg/actuation 1 - 2 inh inhalation QID PRN 03/01/20 04/03/25 History aerosol inhaler (Ventolin HFA) Shortness Of Breath Or Wheezing Held on 04/03/25. Instructions: Doctor's Order metformin 500 mg tablet 500 mg PO QDAY 03/01/20 04/03/25 History multivitamin (One Daily 1 tab PO QDAY 03/01/20 04/03/25 History Multivitamin tablet) ondansetron 4 mg disintegrating 4 mg PO Q6H PRN n/v 03/01/20 04/03/25 History tablet Held on 04/03/25. Instructions: Doctor's Order zolpidem 10 mg tablet 10 mg PO HS PRN Insomnia 03/01/20 04/03/25 History acetaminophen 325 mg capsule 325 mg PO Q6H PRN fever or pain 04/03/25 04/03/25 History atorvastatin 20 mg tablet 20 mg PO QDAY 04/03/25 04/03/25 History pregabalin 50 mg capsule (Lyrica) 50 mg PO QDAY 04/03/25 04/03/25 History Allergies Allergy/AdvReac Type Severity Reaction Status Date / Time Poultry Allergy Verified 04/03/25 09:11 Exam Vital Signs Temp Pulse Resp BP Pulse Ox O2 Del Method 97.0 F 98 19 117/71 96 Room Air 04/03/25 14:47 04/03/25 15:15 04/03/25 15:15 04/03/25 15:15 04/03/25 15:15 04/03/25 14:47 Narrative Exam General-no acute distress, awake alert and oriented, normal body habitus HEENT-normocephalic, atraumatic, sclera anicteric, oral mucosa is dry, poor dentition, there appears to be a sublingual hematoma present with minimal oozing around the patient's posterior teeth, EOMI Chest-there is bilateral expiratory wheezes greater on the left, heart regular and rhythmic, no bruits or murmurs, no increased work of breathing, no use of accessory muscles Abdomen-soft, nontender, bowel sounds present, no rebound or guarding Extremities-pulses are palpable, no clubbing or mottling, no focal deficits, there is a right Fem sheath present with with a large hematoma at the site Drips integrlin Physical Exam Completion Physical Exam Complete?: Yes Results - Warehouse Person Labs 04/04/25 04:48 04/04/25 04:48 Labs: Short CBC 04/03/25 Range/Units 09:52 WBC 16.7 H (3.8-10.6) Thou/mm3 Hgb 15.5 (13.5-16.0) g/dL Hct 45.5 (41.0-53.0) % Plt Count 217 (140-440) Thou/mm3 BMP 04/03/25 09:52 Sodium 138 Potassium 4.2 Chloride 100 Carbon Dioxide 27.4 BUN 19 Creatinine 1.0 Glucose 189 H Calcium 9.2 Cardiac Enzymes 04/03/25 Range/Units 09:52 Troponin I 11.928 H* (0.0-0.045) ng/mL Liver Function 04/03/25 Range/Units 09:52 Total Bilirubin 1.2 (0.3-1.2) mg/dL AST 120 H (0-34) U/L ALT 27 (10-49) U/L Alkaline Phosphatase 80 (46-116) U/L Albumin 4.1 (3.4-4.8) gm/dL Urine 04/03/25 Range/Units 10:46 Urine Color Yellow (Lt Yel-Yel) Urine Clarity Clear (Clear/Hazy) Urine pH 6.0 (5.0-7.0) Ur Specific [place] 1.033 (1.001-1.035) Urine Protein Trace (Neg - Trace) Urine Glucose (UA) 2+ A (Negative) Assessment & Plan Problem List (1) Acute myocardial infarction: Status: Acute (2) Coronary artery disease: Status: Acute (3) Hypertension: Status: Acute (4) Diabetes 1.5, managed as type 2: Status: Acute (5) Hyperlipidemia: Status: Acute (6) Chest pain: Status: Acute Additional Assessment Additional Assessment: In summary this is a 79-year-old male admitted to the ICU status post PCI with stent to the RCA a/p CALCULUS PROFESSOR stable CV IN type I/ CAD- pt is s/p PCI with angioplasty and stent to RCA - on ASA and integrilin - atorvastatin increased to 80 today - hematoma noted at the site of fem sheath - pressure applied and cardiology notified - doppler of R femoral artery in AM Resp Dyspnea- expiratory wheeze with no dx of asthma or copd. pulmonary v cardiogenic - give duoneb and eval - will consider lasix x1 Renal stable GI Transaminitis- in the setting of [place] Endo DM- on metformin at home, hold for now -SSI if needed Heme Leukocytosis- appears to have been present since 2019 however no labs between 2019 and today - unclear chronicity ID stable case d/w ICU team and cardiology labs, imaging, records reviewed ~68min required for eval, exam, review, intervention, dicussion and formulation of POC Additional Plan Additional Plan: PLAN: See MD orders and discussion above. Will continue supportive care of the organ system problems, diagnoses, and failures noted above. [A central line continues to be necessary for infusion of medications and IV fluids, it is to be removed when other adequate venous access is accomplished.] [Cannot be safely managed without restraints as potential for harm secondary to inadvertent movement and loss of tubes and lines outweighs the burdens of restraint.] This patient is critically ill and required [] minutes of my time to provide documentation, evaluate, manage and maintain or prevent deterioration of the organ systems and problems noted above. This critical care time does not include time I spent performing procedures that are reported separately. [If mckay catheter present, it remains necessary to monitor urine output continuously, and/or divert urine from the skin. It will be removed per policy when it is not needed for these purposes.] Provider Notation Provider Notation: Although this document has been carefully reviewed, there may still be some phonetic and other typographical errors. These errors are purely grammatical due to imperfections in the software program and should not be construed in any way to compromise the substance of the patient's medical care during this visit. Thank you for the opportunity and privilege in assisting you with this patient's care and management.
--- NOTE | 2025-04-03 15:55 | PC.NURSE ---
when patient was taken to ICU and transferred over to bed a hematoma did develop on the right groin, i did apply pressure to break down the hematoma, after some time of holding pressure the hematoma got smaller and soft, before i left the ICU i verified that there was no longer a hematoma on the right groin wants to continue Integrilin for 12hours (medication was started at 14:07 on 04/03/25) continue aspirin 81mg and plavix 75mg daily starting tomorrow at 0900 04/04/25
[2025-04-03 16:37] LABS: Basophils # (Auto) 0.0 Thou/mm3 (0.0-0.2); Basophils % (Auto) 0 % (0-2.5); Eosinophils # (Auto) 0.0 Thou/mm3 (0.0-0.5); Eosinophils % (Auto) 0 % (0-10); Hematocrit 41.8 % (41.0-53.0); Hemoglobin 14.2 g/dL (13.5-16.0); Immature Granulocytes Auto 0.19 Thou/mm3 (0.00-0.00); Lymphocytes # (Auto) 1.2 Thou/mm3 (1.0-4.8); Lymphocytes % (Auto) 7 % (10-50); Mean Corpuscular HGB Conc 34.0 g/dl (31.0-37.0); Mean Corpuscular Hemoglobin 31.8 pg (25.0-35.0); Mean Corpuscular Volume 94 fL (80-100); Monocytes # (Auto) 1.2 Thou/mm3 (0.0-0.8); Monocytes % (Auto) 7 % (0-12); Neutrophils # (Auto) 15.1 Thou/mm3 (1.8-7.7); Neutrophils % (Auto) 85 % (37-80); Nucleated Red Blood Cell # 0.00 Thou/mm3 (0.00-0.00); Nucleated Red Blood Cell % 0 /100 WBC (0); Platelet Count 192 Thou/mm3 (140-440); RDW Standard Deviation 45.4 fL (35.1-43.9); Red Blood Count 4.46 Miln/mm3 (4.50-5.90); White Blood Count 17.7 Thou/mm3 (3.8-10.6)
[2025-04-03] MEDS: FUROSEMIDE INJ 10 MG/ML VIAL 2 ML 20 MG IVP (19:31)
[2025-04-03] MEDS: ONDANSETRON INJ 2 MG/ML INJ 2 ML 4 MG IVP (19:55)
[2025-04-03] MEDS: ATORVASTATIN CALCIUM 20 MG TABLET 80 MG PO (20:30)
[2025-04-03] MEDS: INSULIN LISPRO (AdmeLOG) 1 UNIT/0.01 ML UNIT SC (20:30)
[2025-04-03] MEDS: ZOLPIDEM 5 MG TABLET 10 MG PO (20:35)
--- NOTE | 2025-04-03 20:44 | PC.NURSE ---
femstop applied by dr grover at bedside, per keep at current pressure for 1 hour and release pressure slowly, then leave femstop on for 3 hours
--- NOTE | 2025-04-03 21:55 | PC.NURSE ---
2125 FEMSTOP RIGHT GROIN REMOVED WITH CHARGE KIESHA AT BEDSIDE. PRESSURE DRESSING 2X2 GAUZE WITH TEGADERM APPLIED, PT TOLERATED WELL.
[2025-04-03] MEDS: ALBUTEROL/IPRATROPIUM (Duoneb) RT SOL 3 ML NEBU INH (22:48)
[2025-04-04] VITALS (38 sets, daily range): BP systolic 87–154; BP diastolic 49–89; PULSE 74–119; RESP 17–32; TEMP 35.8–37; O2SAT 88–100; BMI 20.7
[2025-04-04] MEDS: ALBUTEROL/IPRATROPIUM (Duoneb) RT SOL 3 ML NEBU INH ×6 (02:07→23:30)
--- NOTE | 2025-04-04 06:00 | XR_ITS ---
Examination: Ultrasound soft tissue extremity right groin Technique: Grayscale sonographic images soft tissue right groin Date and time: April 04, 2025, 0857 hrs. Indications: Bruising in the right groin post angiogram this week Technique: Doppler sonographic assessment of the right lower extremity including assessment peak systolic velocities as well as ankle brachial index Findings: Monophasic arterial flow right common femoral, superficial femoral, popliteal, peroneal, posterior tibial and dorsalis pedis arteries Ankle brachial index 1.0 No pseudoaneurysm Impression: No critical arterial stenoses. Negative for pseudoaneurysm or hematoma
[2025-04-04 06:21] LABS: Basophils # (Auto) 0.1 Thou/mm3 (0.0-0.2); Basophils % (Auto) 0 % (0-2.5); Eosinophils # (Auto) 0.0 Thou/mm3 (0.0-0.5); Eosinophils % (Auto) 0 % (0-10); Hematocrit 39.5 % (41.0-53.0); Hemoglobin 13.4 g/dL (13.5-16.0); Immature Granulocytes Auto 0.10 Thou/mm3 (0.00-0.00); Lymphocytes # (Auto) 1.8 Thou/mm3 (1.0-4.8); Lymphocytes % (Auto) 9 % (10-50); Mean Corpuscular HGB Conc 33.9 g/dl (31.0-37.0); Mean Corpuscular Hemoglobin 32.5 pg (25.0-35.0); Mean Corpuscular Volume 96 fL (80-100); Monocytes # (Auto) 1.9 Thou/mm3 (0.0-0.8); Monocytes % (Auto) 10 % (0-12); Neutrophils # (Auto) 16.0 Thou/mm3 (1.8-7.7); Neutrophils % (Auto) 81 % (37-80); Nucleated Red Blood Cell # 0.00 Thou/mm3 (0.00-0.00); Nucleated Red Blood Cell % 0 /100 WBC (0); Platelet Count 186 Thou/mm3 (140-440); RDW Standard Deviation 47.7 fL (35.1-43.9); Red Blood Count 4.12 Miln/mm3 (4.50-5.90); White Blood Count 19.9 Thou/mm3 (3.8-10.6)
[2025-04-04 06:45] LABS: Glucose Estimated Average 183 mg/dL (80-131); Hemoglobin A1C 8.0 % Hgb (4.8-6.0)
[2025-04-04 06:46] LABS: Alanine Aminotransferase 49 U/L (10-49); Albumin, Serum 3.5 gm/dL (3.4-4.8); Albumin/Globulin Ratio 1.9 (1.2-2.2); Alkaline Phosphatase 60 U/L (46-116); Anion Gap 13 (7-16); Aspartate Amino Transferase 205 U/L (0-34); BUN/Creatinine Ratio 13 Ratio (12-20); Bilirubin,Total 1.2 mg/dL (0.3-1.2); Blood Urea Nitrogen 13 mg/dL (9-23); Calcium 8.0 mg/dL (8.3-10.6); Calcium (Corrected) 8.4 mg/dL (8.5-10.1); Carbon Dioxide 24.4 mMol/L (20.0-31.0); Chloride 102 mMol/L (98-107); Creatinine (Component) 1.0 mg/dL (0.6-1.3); Estimated Creatinine Clearance 51.8 mL/min (>60); Globulin 1.8 gm/dL (2.3-3.5); Glucose 177 mg/dL (74-106); Osmolality,Calculated 281 (275-295); Potassium 3.8 mMol/L (3.4-5.1); Sodium 139 mMol/L (136-145); Total Protein 5.3 gm/dL (5.7-8.2); eGFR > 60 See Note
[2025-04-04] MEDS: INSULIN LISPRO (AdmeLOG) 1 UNIT/0.01 ML UNIT SC ×3 (07:46→17:28)
[2025-04-04] MEDS: PANTOPRAZOLE 40 MG TABLET PO (08:53)
[2025-04-04] MEDS: PREGABALIN 50 MG CAPSULE PO (08:53)
[2025-04-04] MEDS: cefTRIAXone/D5w 1gm IV premix 1 GM/50 ML BAG IV (08:54)
[2025-04-04] MEDS: ASPIRIN EC 81 MG TABEC PO (10:12)
[2025-04-04] MEDS: CLOPIDOGREL BISULFATE 75 MG TABLET PO (10:12)
--- NOTE | 2025-04-04 10:51 | PC.SS ---
Addendum entered by KALANI Buchanan 04/04/25 10:56: SS update: Bedside nurse stated that patient will be downgraded to tele after patient receives ultrasound. Original Note: Patient is a 79 year old male presenting to the hospital for low BP, dizzy x 3 days, vomiting x 2 day. MOLDING MACHINE OPERATOR attempted to make contact but patient was not alert. MOLDING MACHINE OPERATOR placed phone call to Anel but she was not available. MOLDING MACHINE OPERATOR placed phone call to patient?s son Bertin. Bertin confirmed demographic information and stated that patient lives with his , does not use any DME. MOLDING MACHINE OPERATOR inquired if patient is utilizing oxygen, Bertin stated no. Bertin stated that in case patient is not able to make medical decisions on his own him and his mom,?? Anel would make medical decisions. Patient is retired, PCP is Dr. Martin last visit was last week, and pharmacy of choice is [facility]. Once patient is medically clear family would like patient to return home and they can provide transportation. PCP: Dr. Ruffin Decision maker: Anel () [phone] and Bertin [phone] (son) D/c: home
[2025-04-04] MEDS: METOPROLOL SUCCINATE XL 25 MG TABCR PO (10:57)
--- NOTE | 2025-04-04 11:00 | ESPR_ITS ---
Documentation for date of: 04/04/25 Subjective Subjective Interval history: Patient's status post PCI to the RCA Right groin hematoma appears stable recommend echocardiographic exam Continue aspirin Plavix Lipitor beta-claude Exam Vital Signs Temp Pulse Resp BP Pulse Ox O2 Del Method O2 Flow Rate 98.2 F 119 H 24 H 119/62 95 Room Air 1 04/04/25 07:00 04/04/25 10:57 04/04/25 10:02 04/04/25 10:57 04/04/25 10:02 04/04/25 10:00 04/04/25 06:13 Objective Labs 04/04/25 04:48 04/04/25 04:48 Labs: Laboratory Results - last 24 hr 04/03/25 04/03/25 04/03/25 09:52 10:46 16:10 WBC 17.7 H RBC 4.46 L Hgb 14.2 Hct 41.8 MCV 94 MCH 31.8 MCHC 34.0 RDW Std Deviation 45.4 H Plt Count 192 Neut % (Auto) 85 H Lymph % (Auto) 7 L [place] % (Auto) 7 Eos % (Auto) 0 Baso % (Auto) 0 Neut # (Auto) 15.1 H Lymph # (Auto) 1.2 [place] # (Auto) 1.2 H Eos # (Auto) 0.0 Baso # (Auto) 0.0 Immature Gran # (Auto) 0.19 H Absolute Nucleated RBC 0.00 Immature Gran % 1 H Nucleated RBC % 0 Sodium Potassium Chloride Carbon Dioxide Anion Gap BUN Creatinine Estim Creat Clear Calc eGFR BUN/Creatinine Ratio Glucose Estimated Ave Glu mg/dL Hemoglobin A1c Calculated Osmolality Calcium Corrected Calcium Total Bilirubin AST ALT Alkaline Phosphatase Total Protein Albumin Globulin Albumin/Globulin Ratio Triglycerides 70 Cholesterol 124 L LDL Cholesterol, Calc 51 HDL Cholesterol 59 Cholesterol/HDL Ratio 2.1 L Ur Collection Type Clean Catch Urine Color Yellow Urine Clarity Clear Urine pH 6.0 Ur Specific [place] 1.033 Urine Protein Trace Urine Glucose (UA) 2+ A Urine Ketones 2+ A Urine Blood Negative Urine Nitrite Negative Urine Bilirubin Negative Urine Urobilinogen (Auto) Negative Ur Leukocyte Esterase Negative Urine RBC 3 Urine WBC 1 Ur Squamous Epith Cells 0 Urine Bacteria None Ur Culture Indicated? Not Indicated 04/04/25 04:48 WBC 19.9 H RBC 4.12 L Hgb 13.4 L Hct 39.5 L MCV 96 MCH 32.5 MCHC 33.9 RDW Std Deviation 47.7 H Plt Count 186 Neut % (Auto) 81 H Lymph % (Auto) 9 L [place] % (Auto) 10 Eos % (Auto) 0 Baso % (Auto) 0 Neut # (Auto) 16.0 H Lymph # (Auto) 1.8 [place] # (Auto) 1.9 H Eos # (Auto) 0.0 Baso # (Auto) 0.1 Immature Gran # (Auto) 0.10 H Absolute Nucleated RBC 0.00 Immature Gran % 1 H Nucleated RBC % 0 Sodium 139 Potassium 3.8 Chloride 102 Carbon Dioxide 24.4 Anion Gap 13 BUN 13 Creatinine 1.0 Estim Creat Clear Calc 51.8 L eGFR > 60 BUN/Creatinine Ratio 13 Glucose [address] Glu mg/dL 183 H Hemoglobin A1c 8.0 H Calculated Osmolality 281 Calcium 8.0 L Corrected Calcium 8.4 L Total Bilirubin 1.2 AST 205 H ALT 49 Alkaline Phosphatase 60 D Total Protein 5.3 L Albumin 3.5 D Globulin 1.8 L Albumin/Globulin Ratio 1.9 Triglycerides Cholesterol LDL Cholesterol, Calc HDL Cholesterol Cholesterol/HDL Ratio Ur Collection Type Urine Color Urine Clarity Urine pH Ur Specific [place] Urine Protein Urine Glucose (UA) Urine Ketones Urine Blood Urine Nitrite Urine Bilirubin Urine Urobilinogen (Auto) Ur Leukocyte Esterase Urine RBC Urine WBC Ur Squamous Epith Cells Urine Bacteria Ur Culture Indicated? Assessment & Plan A&P Narrative In view of patient's ongoing chest pain 7 out of 10 EKG showing Q waves and T inversion with possible ST elevation in lead III We will proceed with cardiac cath and coronary angiogram urgently Procedure risk-benefit was explained to the patient Time Spent With Patient Time: Total time spent is greater than 50% in coordination of care (as documented) at patient's floor/unit and/or counseling patient:
[2025-04-04 11:28] LABS: Path Review Blood Smear Sent to Pathologist
--- NOTE | 2025-04-04 11:37 | ESPR_ITS ---
Documentation for date of: 04/04/25 Subjective Subjective Interval history: Overnight events: No acute events overnight. Patient was seen and examined at bedside. AM vitals and labs reviewed. Patient does not appear to be in any acute distress at this time. Right groin hematoma improved. Patient is a downgrade from ICU. Summary noted below: This patient is a 79-year-old male with a past medical history of T2DM, HTN, and HLD who presented to [facility] ED on 04/03 due to chest pain that started about 3 days prior to admission. Patient was admitted for management of acute myocardial infarction. The chest pain was noted to be located in the left side with radiation to the left shoulder. At time of admission, the patient's vitals were stable, however troponin was noted to be significantly elevated at 11.928 with EKG showing 0.[address] elevation in lead III per cardiology, which prompted STEMI alert and the patient was taken to [facility] for emergency cardiac catheterization. During the procedure, it was noted that the patient had 100% occlusion in the midsegment of the right coronary artery. As result, balloon angioplasty and stent placement was performed on the right coronary artery. However, patient was noted to become bradycardic and was placed on temporary pacer, where he developed A-fib. As a result, the patient was taken to the ICU, where he was also noted that the patient had a large right groin hematoma. The groin hematoma was successfully treated with Integrilin and ICU team ordered ultrasound of right femoral artery, which did not show any pseudoaneurysm. Patient did have some dyspnea during ICU stay, which improved after Lasix and nebulizer treatment. Due to patient's debility, patient was downgraded to medical floors on 04/04. Continue aspirin, Plavix, and metoprolol tartrate per cardiology recommendations. Continue ceftriaxone 1 g daily due to suspected underlying pneumonia given infiltrates found on chest x-ray 04/03. Decreased atorvastatin from 80 mg nightly to 40 mg nightly. Review of systems otherwise negative except for what is mentioned above. Exam Vital Signs Temp Pulse Resp BP Pulse Ox O2 Del Method O2 Flow Rate 98.2 F 104 H 32 H 120/62 95 Room Air 1 04/04/25 07:00 04/04/25 11:01 04/04/25 11:01 04/04/25 11:04/04/25 11:01 04/04/25 11:01 04/04/25 06:13 Narrative Exam Physical Exam: General: Alert, no acute distress. Skin: Warm, dry, intact. Head: Normocephalic, atraumatic. Eye: Normal conjunctiva, PERRL. Cardiovascular: Regular rate and rhythm, no murmur, +S1/S2. Respiratory: Lungs are clear to auscultation, respirations unlabored, no crackles, no wheezing. Gastrointestinal: Soft, nontender, non-distended. No guarding or rebound tenderness. Extremities: No edema, no cyanosis, no clubbing. Neuro: No focal deficits observed. Conversant, moving all extremities. No overt cerebellar signs/incoordination. Psychiatric: Cooperative, appropriate affect. Objective Labs 04/05/25 04:50 04/05/25 04:50 Labs: Laboratory Results - last 24 hr 04/03/25 04/03/25 04/04/25 09:52 16:10 04:48 WBC 17.7 H 19.9 H RBC 4.46 L 4.12 L Hgb 14.2 13.4 L Hct 41.8 39.5 L MCV 94 96 MCH 31.8 32.5 MCHC 34.0 33.9 RDW Std Deviation 45.4 H 47.7 H Plt Count 192 186 Neut % (Auto) 85 H 81 H Lymph % (Auto) 7 L 9 L [place] % (Auto) 7 10 Eos % (Auto) 0 0 Baso % (Auto) 0 0 Neut # (Auto) 15.1 H 16.0 H Lymph # (Auto) 1.2 1.8 [place] # (Auto) 1.2 H 1.9 H Eos # (Auto) 0.0 0.0 Baso # (Auto) 0.0 0.1 Immature Gran # (Auto) 0.19 H 0.10 H Absolute Nucleated RBC 0.00 0.00 Immature Gran % 1 H 1 H Nucleated RBC % 0 0 Smear Path Review Sent to Pathologist Sodium 139 Potassium 3.8 Chloride 102 Carbon Dioxide 24.4 Anion Gap 13 BUN 13 Creatinine 1.0 Estim Creat Clear Calc 51.8 L eGFR > 60 BUN/Creatinine Ratio [address]ucose [address] Glu mg/dL 183 H Hemoglobin A1c 8.0 H Calculated Osmolality 281 Calcium 8.0 L Corrected Calcium 8.4 L Total Bilirubin 1.2 AST 205 H ALT 49 Alkaline Phosphatase 60 D Total Protein 5.3 L Albumin 3.5 D Globulin 1.8 L Albumin/Globulin Ratio 1.9 Triglycerides 70 Cholesterol 124 L LDL Cholesterol, Calc 51 HDL Cholesterol 59 Cholesterol/HDL Ratio 2.1 L Quality Measures Quality Measures VTE prophylaxis Advance care planning discussed with:: patient Assessment & Plan Assessment Current Active Medications: Generic Name Dose Route Start Last Admin Trade Name Freq PRN Reason Stop Dose Admin Acetaminophen 650 mg 04/03/25 12:42 Acetaminophen 325 Mg Tablet PO 05/03/25 12:41 Q6H PRN Fever >101.5 Albuterol/Ipratropium 3 ml 04/03/25 15:37 Albuterol/Ipratropium (Duoneb) Rt Obdulia 3 Ml Nebu INH 05/03/25 15:36 Q2HR PRN SHORTNESS OF BREATH OR WHEEZE Albuterol/Ipratropium 3 ml 04/03/25 19:00 04/04/25 10:01 Albuterol/Ipratropium (Duoneb) Rt Obdulia 3 Ml Nebu INH 05/03/25 18:59 3 ml Q4HRRT BENNETT Administration Aspirin 81 mg 04/04/25 09:00 04/04/25 10:12 Aspirin Ec 81 Mg Tabec PO 05/04/25 08:59 81 mg QDAY BENNETT Administration Atorvastatin Calcium 80 mg 04/03/25 21:00 04/03/25 20:30 Atorvastatin Calcium 20 Mg Tablet PO 05/03/25 20:59 80 mg HS BENNETT Administration Clopidogrel Bisulfate 75 mg 04/04/25 09:00 04/04/25 10:12 Clopidogrel Bisulfate 75 Mg Tablet PO 05/04/25 08:59 75 mg DAILY BENNETT Administration Dextrose 25 ml 04/03/25 15:18 Dextrose 50%-Water Inj 50 Ml Syringe IV 05/03/25 15:17 Q15MIN PRN BG 50-70 responsive npo pt Dextrose 50 ml 04/03/25 15:18 Dextrose 50%-Water Inj 50 Ml Syringe IV 05/03/25 15:17 Q15MIN PRN BG <50 OR BG <70 & pt unresponsive Glucagon 1 mg 04/03/25 15:18 Glucagon Inj 1 Mg Vial IM Q15MIN PRN BG <70, and no IV access Ceftriaxone Sodium/Dextrose 1 gm in 50 mls @ 100 mls/hr 04/04/25 09:00 04/04/25 09:24 Rocephin/D5w 1gm Iv Premix IV 04/11/25 08:59 Infused QDAY BENNETT Infusion Insulin Human Lispro 0 unit 04/03/25 17:00 04/04/25 07:46 Insulin Lispro (Admelog) 1 Unit/0.01 Ml Unit SC 05/03/25 16:59 1 unit ACHS BENNETT Administration Protocol Metoprolol Succinate 25 mg 04/04/25 10:45 04/04/25 10:57 Metoprolol Succinate Xl 25 Mg Tabcr PO 05/04/25 10:44 25 mg QDAY BENNETT Administration Ondansetron HCl 4 mg 04/03/25 19:43 Ondansetron Inj 2 Mg/Ml Inj 2 Ml IVP 05/03/25 19:42 Q6HR PRN NAUSEA OR VOMITING Protocol Pantoprazole Sodium 40 mg 04/04/25 09:00 04/04/25 08:53 Pantoprazole 40 Mg Tablet PO 05/04/25 08:59 40 mg QDAY BENNETT Administration Pregabalin 50 mg 04/04/25 09:00 04/04/25 08:53 Pregabalin 50 Mg Capsule PO 05/04/25 08:59 50 mg QDAY BENNETT Administration Sennosides 1 tab 04/03/25 12:47 Senna Tablet PO 05/03/25 12:46 QDAY PRN constipation Protocol Zolpidem Tartrate 10 mg 04/03/25 19:43 04/03/25 20:35 Zolpidem 5 Mg Tablet PO 05/03/25 19:42 10 mg HS PRN Administration INSOMNIA Plan This patient is a 79-year-old male with a past medical history of T2DM, HTN, and HLD who presented to [facility] ED on 04/03 due to chest pain that started about 3 days prior to admission. Patient was admitted for management of acute myocardial infarction. #Acute myocardial infarction #STEMI type I #Coronary artery disease status post PCI with angioplasty and stent to RCA 04/03 #Atrial fibrillation Patient presented with chief complaint of chest pain for the past 3 days before admission. Chest pain was located primarily on the left side with radiation to the left shoulder. Troponin was noted to be significantly elevated at 11.928 with EKG showing 0.[address] elevation in lead III per cardiology. This prompted STEMI alert and patient was taken to [facility] for emergency cardiac catheterization on 04/03. Patient was found to have 100% occlusion of mid segment of right coronary artery. Balloon angioplasty and stent placement was performed in right coronary artery. Patient was noted noted to develop bradycardia and A-fib after the procedure. Patient stayed in ICU after cardiac cath and was downgraded on 04/04. Plan: Cardiology consulted, appreciate recommendations Aspirin 81 mg daily, Plavix 75 mg daily, and metoprolol tartrate 25 mg twice daily per cardiology Atorvastatin 40 mg nightly Continue to monitor for mechanical complications post acute myocardial infarction Keep potassium above 4 and magnesium above 2 #Leukocytosis, reactive versus infectious #Community acquired pneumonia? Patient noted to have leukocytosis of 16.7 on presentation. Patient is noted to have elevated WBC since 2019 when the patient was treated for COVID. At the time, the patient was discharged with a leukocytosis of 12.1 as it was noted to be significantly downtrending. Exact etiology of leukocytosis on this admission is not entirely clear, but may be reactive from STEMI or due to CAP as suspected on CXR from 04/03. Plan: Continue to monitor daily Continue ceftriaxone 1 g daily Peripheral smear and flow cytometry ordered, pending #Transaminitis Patient noted to have elevated liver enzymes on admission. Likely secondary to acute myocardial infarction. AST and ALT noted to have almost doubled after PCI and stenting, likely secondary to episode of bradycardia postprocedure. Plan: Continue to monitor Hepatitis panel ordered, pending #Ujv-pjzexjm-frnqshali type 2 diabetes mellitus Patient noted to have a history of type 2 diabetes mellitus. Patient does not take any insulin at home. Patient does take metformin at home. Hemoglobin A1c 04/04 noted to be 8.0%. Plan: Sliding scale insulin Bedside glucose checks ACHS #Right groin hematoma, resolving Patient noted to have a hematoma in the right groin after cardiac cath procedure. In ICU, patient received Integrilin which seems to have significantly improved the hematoma. Ultrasound of the right femoral artery on 04/04 did not show any pseudoaneurysm. Plan: Continue to monitor #Hyperlipidemia Patient noted to have a history of hyperlipidemia and takes atorvastatin 20 mg daily at home. Only abnormality noted on lipid panel ordered 04/03 is cholesterol of 124. Plan: Atorvastatin 40 mg nightly given recent acute myocardial infarction #Hypertension, primary Patient noted to have a history of hypertension, however does not take any medications at home. Plan: Continue to monitor, consider TRACEE inhibitor or ARB if consistently elevated DVT Prophylaxis: SCDs GI Prophylaxis: N/A Bowel: N/A Diet: Cardiac Singh: N/A Lines: Peripheral IV Antibiotics: Ceftriaxone Code Status: FULL Reason for Hospitalization: Acute myocardial infarction Other Barriers to Discharge: PT, cardiology clearance Patient plan of care was discussed with attending physician Dr. Klaudia Solares, PGY1 Attending Provider Attestation/Addendum I have discussed and was present for the essential components of the history, physical examination, diagnosis, and treatment plan with the resident. I agree with the patient's care as documented by the resident and amended herein by me. Kuldeep Rudolph DO. Although this document has been carefully reviewed, there may still be some phonetic and other typographical errors. These errors are purely grammatical due to imperfections in the software program and should not be construed in any way to compromise the substance of the patient's medical care during this visit.
--- NOTE | 2025-04-04 12:32 | ESPR_ITS ---
Documentation for date of: 04/04/25 Subjective Subjective Interval history: This is a 79-year-old male Montene[place]in-speaking who presents to the ER for chest pain. Apparently he had been experiencing chest pain for the last 3 days. It was located on the left side of his chest and has been constant with no radiation however he did tell the admitting team that he had radiation to the left arm.. States that he did feel nauseous and clammy at home. Pain became worse reason for which he presented to the ER today. At time of arrival to the ER he was noted to have positive troponins of 11 with some EKG changes. Cardiology consult was called and the patient was taken to the [facility]. The patient had a stent placed to the RCA. He became bradycardic during the procedure and was temporarily placed on a pacer. However he then developed A- fib which was treated the patient is currently in sinus rhythm. Upon arrival to the ICU the patient was noted to have a large right groin hematoma. He is on an Integrilin drip. 04/04-no acute overnight events, site of right hematoma is now soft and plans. Ecchymosis in the site. Patient is awake alert and oriented without any complaints Critical Care Note Critical care time (min.): 0 Exam Vital Signs Temp Pulse Resp BP Pulse Ox O2 Del Method O2 Flow Rate 98.6 F 108 H 30 H 154/89 H 95 Room Air 1 04/04/25 12:01 04/04/25 12:01 04/04/25 12:04/04/25 12:04/04/25 12:04/04/25 12:04/04/25 06:13 Narrative Exam General-no acute distress, awake alert and oriented, normal body habitus HEENT-normocephalic, atraumatic, sclera icteric, EOMI, oral mucosa is hydrated Chest-lungs clear to auscultation bilaterally, heart regular rhythmic, no bruits murmurs auscultated times exam no tenderness on palpation of chest wall Abdomen-soft, nontender, bowel sounds present, no rebound or guarding Extremities-improved edema of the lower extremities, pulses palpable, no clubbing or mottling Physical Exam Completion Physical Exam Complete?: Yes Objective - Dental Lab Technician Labs 04/04/25 04:48 04/04/25 04:48 Labs: Laboratory Results - last 24 hr 04/03/25 04/03/25 04/04/25 09:52 16:10 04:48 WBC 17.7 H 19.9 H RBC 4.46 L 4.12 L Hgb 14.2 13.4 L Hct 41.8 39.5 L MCV 94 96 MCH 31.8 32.5 MCHC 34.0 33.9 RDW Std Deviation 45.4 H 47.7 H Plt Count 192 186 Neut % (Auto) 85 H 81 H Lymph % (Auto) 7 L 9 L [place] % (Auto) 7 10 Eos % (Auto) 0 0 Baso % (Auto) 0 0 Neut # (Auto) 15.1 H 16.0 H Lymph # (Auto) 1.2 1.8 [place] # (Auto) 1.2 H 1.9 H Eos # (Auto) 0.0 0.0 Baso # (Auto) 0.0 0.1 Immature Gran # (Auto) 0.19 H 0.10 H Absolute Nucleated RBC 0.00 0.00 Immature Gran % 1 H 1 H Nucleated RBC % 0 0 Smear Path Review Sent to Pathologist Sodium 139 Potassium 3.8 Chloride 102 Carbon Dioxide 24.4 Anion Gap 13 BUN 13 Creatinine 1.0 Estim Creat Clear Calc 51.8 L eGFR > 60 BUN/Creatinine Ratio 13 Glucose [address] Glu mg/dL 183 H Hemoglobin A1c 8.0 H Calculated Osmolality 281 Calcium 8.0 L Corrected Calcium 8.4 L Total Bilirubin 1.2 AST 205 H ALT 49 Alkaline Phosphatase 60 D Total Protein 5.3 L Albumin 3.5 D Globulin 1.8 L Albumin/Globulin Ratio 1.9 Triglycerides 70 Cholesterol 124 L LDL Cholesterol, Calc 51 HDL Cholesterol 59 Cholesterol/HDL Ratio 2.1 L Assessment & Plan Problem List (1) Acute myocardial infarction: Status: Acute (2) Coronary artery disease: Status: Acute (3) Hypertension: Status: Acute (4) Diabetes 1.5, managed as type 2: Status: Acute (5) Hyperlipidemia: Status: Acute (6) Chest pain: Status: Acute Additional Assessment Additional Assessment: In summary this is a 79-year-old male admitted to the ICU status post PCI with stent to the RCA a/p [employer]ICS OFFICER stable CV RI type I/ CAD- pt is s/p PCI with angioplasty and stent to RCA - on ASA -> Integrilin stopped yesterday secondary to the right hematoma - atorvastatin increased to 80 today - Ultrasound of right femoral artery did not show any pseudoaneurysm this morning - Hematoma has resolved Resp Dyspnea-improved after Lasix and neb treatment yesterday Renal stable GI Transaminitis- in the setting of RI - Some elevation in AST today Endo DM- on metformin at home, hold for now -SSI if needed Heme Leukocytosis- appears to have been present since 2019 however no labs between 2019 and today - unclear chronicity - Remains elevated today - Will obtain a peripheral smear and send for flow cytometry ID stable case d/w ICU team Today patient appears stable for downgrade to telemetry labs, imaging, records reviewed ~36min required for eval, exam, review, intervention, dicussion and formulation of POC Additional Plan Additional Plan: PLAN: See MD orders and discussion above. Will continue supportive care of the organ system problems, diagnoses, and failures noted above. [A central line continues to be necessary for infusion of medications and IV fluids, it is to be removed when other adequate venous access is accomplished.] [Cannot be safely managed without restraints as potential for harm secondary to inadvertent movement and loss of tubes and lines outweighs the burdens of restraint.] This patient is critically ill and required [] minutes of my time to provide documentation, evaluate, manage and maintain or prevent deterioration of the organ systems and problems noted above. This critical care time does not include time I spent performing procedures that are reported separately. [If mckay catheter present, it remains necessary to monitor urine output continuously, and/or divert urine from the skin. It will be removed per policy when it is not needed for these purposes.] Provider Notation Provider Notation: Although this document has been carefully reviewed, there may still be some phonetic and other typographical errors. These errors are purely grammatical due to imperfections in the software program and should not be construed in any way to compromise the substance of the patient's medical care during this visit. Thank you for the opportunity and privilege in assisting you with this patient's care and management.
--- NOTE | 2025-04-04 13:59 | PD.RESPRO ---
Documentation for date of: 04/04/25 Subjective Subjective Interval history: This is a 79-year-old male Armenian-speaking who presents to the ER for chest pain. Apparently he had been experiencing chest pain for the last 3 days. It was located on the left side of his chest and has been constant with no radiation however he did tell the admitting team that he had radiation to the left arm.. States that he did feel nauseous and clammy at home. Pain became worse reason for which he presented to the ER today. At time of arrival to the ER he was noted to have positive troponins of 11 with some EKG changes. Cardiology consult was called and the patient was taken to the [facility]. The patient had a stent placed to the RCA. He became bradycardic during the procedure and was temporarily placed on a pacer. However he then developed A-fib which was treated the patient is currently in sinus rhythm. Upon arrival to the ICU the patient was noted to have a large right groin hematoma. He is on an Integrilin drip. PMH: Diabetes, hypertension, dyslipidemia PSH: Denies smoking or alcohol use ROS: As per HPI otherwise negative 04/04/2025: Overnight patient developed a large right groin hematoma and had hemostats placed which stopped expansion. Input 262, output 1350, balance -1087 cc. This morning patient says he feels well, denies any chest pain, chest pressure, palpitations, shortness of breath, weakness and dizziness. Hb 13.4, WBC 90.9, BUN 13, CR 1, HbA1c 8%. Started patient on metoprolol XL 25 mg p.o. daily, continue aspirin, Plavix and atorvastatin as per cardiology recommendations. Right groin hematoma has remained stable, patient currently clinically stable for downgrade to telemetry. Exam Vital Signs Temp Pulse Resp BP Pulse Ox O2 Del Method O2 Flow Rate 98.6 F 108 H 30 H 154/89 H 95 Room Air 1 04/04/25 12:04/04/25 12:04/04/25 12:04/04/25 12:04/04/25 12:04/04/25 12:04/04/25 06:13 Narrative Exam Constitutional Alert, oriented x 3 and comfortable. Elderly male, appears younger than his age HEENT Vision grossly intact. Patent nares. Trachea midline Respiratory Chest normal on inspection and clear auscultation bilaterally Cardiovascular S1 and S2 audible, RRR. No murmurs carotid bruit. No gross JVD. Abdominal Soft and non tender to palpation in all quadrants. BS + Genitourinary No bladder tenderness, no flank pain. Normal to palpation Musculoskeletal Extremities tone within normal limits. No LE edema. Neurological CN II - XII grossly intact. Extremity motor and sensation grossly intact. Skin Large area of ecchymosis in right groin extending to thigh. Bandage noted over right thigh, clean. 5 x 5 circular area of ecchymosis left antecubital region Psychiatric Patient has good affect, is cooperative Objective Labs 04/04/25 04:48 04/04/25 04:48 Labs: Laboratory Results - last 24 hr 04/03/25 04/04/25 16:10 04:48 WBC 17.7 H 19.9 H RBC 4.46 L 4.12 L Hgb 14.2 13.4 L Hct 41.8 39.5 L MCV 94 96 MCH 31.8 32.5 MCHC 34.0 33.9 RDW Std Deviation 45.4 H 47.7 H Plt Count 192 186 Neut % (Auto) 85 H 81 H Lymph % (Auto) 7 L 9 L [place] % (Auto) 7 10 Eos % (Auto) 0 0 Baso % (Auto) 0 0 Neut # (Auto) 15.1 H 16.0 H Lymph # (Auto) 1.2 1.8 [place] # (Auto) 1.2 H 1.9 H Eos # (Auto) 0.0 0.0 Baso # (Auto) 0.0 0.1 Immature Gran # (Auto) 0.19 H 0.10 H Absolute Nucleated RBC 0.00 0.00 Immature Gran % 1 H 1 H Nucleated RBC % 0 0 Smear Path Review Sent to Pathologist Sodium 139 Potassium 3.8 Chloride 102 Carbon Dioxide 24.4 Anion Gap 13 BUN 13 Creatinine 1.0 Estim Creat Clear Calc 51.8 L eGFR > 60 BUN/Creatinine Ratio [address] Glu mg/dL 183 H Hemoglobin A1c 8.0 H Calculated Osmolality 281 Calcium 8.0 L Corrected Calcium 8.4 L Total Bilirubin 1.2 AST 205 H ALT 49 Alkaline Phosphatase 60 D Total Protein 5.3 L Albumin 3.5 D Globulin 1.8 L Albumin/Globulin Ratio 1.9 Quality Measures Quality Measures none Advance care planning discussed with:: patient Assessment & Plan Assessment Current Active Medications: Generic Name Dose Route Start Last Admin Trade Name Freq PRN Reason Stop Dose Admin Acetaminophen 650 mg 04/03/25 12:42 Acetaminophen 325 Mg Tablet PO 05/03/25 12:41 Q6H PRN Fever >101.5 Albuterol/Ipratropium 3 ml 04/03/25 15:37 Albuterol/Ipratropium (Duoneb) Rt Obdulia 3 Ml Nebu INH 05/03/25 15:36 Q2HR PRN SHORTNESS OF BREATH OR WHEEZE Albuterol/Ipratropium 3 ml 04/03/25 19:00 04/04/25 10:01 Albuterol/Ipratropium (Duoneb) Rt Obdulia 3 Ml Nebu INH 05/03/25 18:59 3 ml Q4HRRT BENNETT Administration Aspirin 81 mg 04/04/25 09:00 04/04/25 10:12 Aspirin Ec 81 Mg Tabec PO 05/04/25 08:59 81 mg QDAY BENNETT Administration Atorvastatin Calcium 80 mg 04/03/25 21:00 04/03/25 20:30 Atorvastatin Calcium 20 Mg Tablet PO 05/03/25 20:59 80 mg HS BENNETT Administration Clopidogrel Bisulfate 75 mg 04/04/25 09:00 04/04/25 10:12 Clopidogrel Bisulfate 75 Mg Tablet PO 05/04/25 08:59 75 mg DAILY BENNETT Administration Dextrose 25 ml 04/03/25 15:18 Dextrose 50%-Water Inj 50 Ml Syringe IV 05/03/25 15:17 Q15MIN PRN BG 50-70 responsive npo pt Dextrose 50 ml 04/03/25 15:18 Dextrose 50%-Water Inj 50 Ml Syringe IV 05/03/25 15:17 Q15MIN PRN BG <50 OR BG <70 & pt unresponsive Glucagon 1 mg 04/03/25 15:18 Glucagon Inj 1 Mg Vial IM Q15MIN PRN BG <70, and no IV access Ceftriaxone Sodium/Dextrose 1 gm in 50 mls @ 100 mls/hr 04/04/25 09:00 04/04/25 09:24 Rocephin/D5w 1gm Iv Premix IV 04/11/25 08:59 Infused QDAY BENNETT Infusion Insulin Human Lispro 0 unit 04/03/25 17:00 04/04/25 11:53 Insulin Lispro (Admelog) 1 Unit/0.01 Ml Unit SC 05/03/25 16:59 3 unit ACHS BENNETT Administration Protocol Metoprolol Tartrate 25 mg 04/04/25 21:00 Metoprolol Tartrate 25 Mg Tablet PO 05/04/25 20:59 BID BENNETT Ondansetron HCl 4 mg 04/03/25 19:43 Ondansetron Inj 2 Mg/Ml Inj 2 Ml IVP 05/03/25 19:42 Q6HR PRN NAUSEA OR VOMITING Protocol Pantoprazole Sodium 40 mg 04/04/25 09:00 04/04/25 08:53 Pantoprazole 40 Mg Tablet PO 05/04/25 08:59 40 mg QDAY BENNETT Administration Pregabalin 50 mg 04/04/25 09:00 04/04/25 08:53 Pregabalin 50 Mg Capsule PO 05/04/25 08:59 50 mg QDAY BENNETT Administration Sennosides 1 tab 04/03/25 12:47 Senna Tablet PO 05/03/25 12:46 QDAY PRN constipation Protocol Zolpidem Tartrate 10 mg 04/03/25 19:43 04/03/25 20:35 Zolpidem 5 Mg Tablet PO 05/03/25 19:42 10 mg HS PRN Administration INSOMNIA Plan In summary this is a 79-year-old male admitted to the ICU status post PCI with stent to the RCA [employer] No acute problem CV STEMI s/p PCI with RCA GRACE on 04/03 Rx: ? Overnight Integrilin drip was discontinued by cardiology ? Continue aspirin, Plavix and atorvastatin 80 mg p.o. at bedtime - Started on metoprolol succinate 25 mg p.o. daily ? Cardiology, Dr. Nguyen consulted. Appreciate recommendations Resp No acute problems Renal stable GI Transaminitis DDx: Secondary to CA Dx: - AST 205 Rx: - Monitor CMP Endo NIDDM type 2 [8.8%] RX: SSI Heme Leukocytosis DDx: -? Malignancy? Reactive Dx: Dx: - From chart review has history of chronically elevated WBC - WBC 19.9. Rx: - Flow cytometry for evaluation of malignancy MSK Right groin hematoma Rx: - Ice packs ICU Health maintenance: Dispo: Stable for downgrade to Telemetry Diet: Cardiac DVT ppx: SCDs GI ppx: Protonix 40mg qD IV lines: 2 pIV Central line: No Arterial line: No Singh: No Code status: FULL CODE Plan of care discussed with Attending Dr. Jayy Adhikari MD PGY 2 Disclaimer: This note was dictated by speech recognition. Minor errors in cell technician may be present due to voice recognition software.
[2025-04-04 14:24] LABS: Thyroid Stimulating Hormone 0.51 uIU/mL (0.55-4.78)
[2025-04-04] MEDS: ZOLPIDEM 5 MG TABLET 10 MG PO (20:54)
[2025-04-04] MEDS: ATORVASTATIN CALCIUM 20 MG TABLET 40 MG PO (20:54)
[2025-04-05] VITALS (9 sets, daily range): BP systolic 97–121; BP diastolic 57–71; PULSE 81–113; RESP 18–27; TEMP 35.9–36.1; O2SAT 91–100; BMI 13.0
[2025-04-05] MEDS: ALBUTEROL/IPRATROPIUM (Duoneb) RT SOL 3 ML NEBU INH ×4 (02:30→14:49)
[2025-04-05 05:18] LABS: Basophils # (Auto) 0.1 Thou/mm3 (0.0-0.2); Basophils % (Auto) 0 % (0-2.5); Eosinophils # (Auto) 0.1 Thou/mm3 (0.0-0.5); Eosinophils % (Auto) 1 % (0-10); Hematocrit 39.7 % (41.0-53.0); Hemoglobin 13.3 g/dL (13.5-16.0); Immature Granulocytes Auto 0.10 Thou/mm3 (0.00-0.00); Lymphocytes # (Auto) 1.9 Thou/mm3 (1.0-4.8); Lymphocytes % (Auto) 13 % (10-50); Mean Corpuscular HGB Conc 33.5 g/dl (31.0-37.0); Mean Corpuscular Hemoglobin 32.6 pg (25.0-35.0); Mean Corpuscular Volume 97 fL (80-100); Monocytes # (Auto) 1.6 Thou/mm3 (0.0-0.8); Monocytes % (Auto) 11 % (0-12); Neutrophils # (Auto) 11.5 Thou/mm3 (1.8-7.7); Neutrophils % (Auto) 75 % (37-80); Nucleated Red Blood Cell # 0.00 Thou/mm3 (0.00-0.00); Nucleated Red Blood Cell % 0 /100 WBC (0); Platelet Count 192 Thou/mm3 (140-440); RDW Standard Deviation 49.9 fL (35.1-43.9); Red Blood Count 4.08 Miln/mm3 (4.50-5.90); White Blood Count 15.3 Thou/mm3 (3.8-10.6)
[2025-04-05 05:47] LABS: Alanine Aminotransferase 38 U/L (10-49); Albumin, Serum 3.4 gm/dL (3.4-4.8); Albumin/Globulin Ratio 2.0 (1.2-2.2); Alkaline Phosphatase 59 U/L (46-116); Anion Gap 9 (7-16); Aspartate Amino Transferase 111 U/L (0-34); BUN/Creatinine Ratio 12 Ratio (12-20); Bilirubin,Total 1.1 mg/dL (0.3-1.2); Blood Urea Nitrogen 11 mg/dL (9-23); Calcium 8.6 mg/dL (8.3-10.6); Calcium (Corrected) 9.1 mg/dL (8.5-10.1); Carbon Dioxide 29.0 mMol/L (20.0-31.0); Chloride 105 mMol/L (98-107); Creatinine (Component) 0.9 mg/dL (0.6-1.3); Estimated Creatinine Clearance 58.4 mL/min (>60); Free T4 (Free Thyroxine) 1.31 ng/dL (0.89-1.76); Globulin 1.7 gm/dL (2.3-3.5); Glucose 161 mg/dL (74-106); Magnesium 2.0 mg/dL (1.6-2.6); Osmolality,Calculated 287 (275-295); Potassium 3.5 mMol/L (3.4-5.1); Sodium 143 mMol/L (136-145); Total Protein 5.1 gm/dL (5.7-8.2); eGFR > 60 See Note
[2025-04-05] MEDS: cefTRIAXone/D5w 1gm IV premix 1 GM/50 ML BAG IV (08:32)
[2025-04-05] MEDS: PANTOPRAZOLE 40 MG TABLET PO (08:33)
[2025-04-05] MEDS: POLYETHYLENE GLYCOL 17 GM PACKET PO (08:33)
[2025-04-05] MEDS: ASPIRIN EC 81 MG TABEC PO (08:33)
[2025-04-05] MEDS: CLOPIDOGREL BISULFATE 75 MG TABLET PO (08:33)
[2025-04-05] MEDS: PREGABALIN 50 MG CAPSULE PO (08:33)
[2025-04-05] MEDS: INSULIN LISPRO (AdmeLOG) 1 UNIT/0.01 ML UNIT SC (11:30)
--- NOTE | 2025-04-05 11:58 | PD.RESPRO ---
Documentation for date of: 04/05/25 Exam Vital Signs Temp Pulse Resp BP Pulse Ox O2 Del Method O2 Flow Rate 96.9 F 93 22 H 106/57 L 100 Nasal Cannula 2 04/05/25 08:00 04/05/25 11:16 04/05/25 11:16 04/05/25 08:00 04/05/25 11:16 04/05/25 08:00 04/05/25 08:00 Objective Labs 04/05/25 04:50 04/05/25 04:50 Labs: Laboratory Results - last 24 hr 04/04/25 04/05/25 04:48 04:50 WBC 15.3 H RBC 4.08 L Hgb 13.3 L Hct 39.7 L MCV 97 MCH 32.6 MCHC 33.5 RDW Std Deviation 49.9 H Plt Count 192 Neut % (Auto) 75 Lymph % (Auto) 13 [place] % (Auto) 11 Eos % (Auto) 1 Baso % (Auto) 0 Neut # (Auto) 11.5 H Lymph # (Auto) 1.9 [place] # (Auto) 1.6 H Eos # (Auto) 0.1 Baso # (Auto) 0.1 Immature Gran # (Auto) 0.10 H Absolute Nucleated RBC 0.00 Immature Gran % 1 H Nucleated RBC % 0 Sodium 143 Potassium 3.5 Chloride 105 Carbon Dioxide 29.0 Anion Gap 9 BUN 11 Creatinine 0.9 Estim Creat Clear Calc 58.4 L eGFR > 60 BUN/Creatinine Ratio 12 Glucose 161 H Calculated Osmolality 287 Calcium 8.6 Corrected Calcium 9.1 Magnesium 2.0 Total Bilirubin 1.1 AST 111 H ALT 38 Alkaline Phosphatase 59 Total Protein 5.1 L Albumin 3.4 Globulin 1.7 L Albumin/Globulin Ratio 2.0 TSH 0.51 L Free T4 1.31 Quality Measures Quality Measures VTE prophylaxis Assessment & Plan Assessment Current Active Medications: Generic Name Dose Route Start Last Admin Trade Name Freq PRN Reason Stop Dose Admin Acetaminophen 650 mg 04/03/25 12:42 Acetaminophen 325 Mg Tablet PO 05/03/25 12:41 Q6H PRN Fever >101.5 Albuterol/Ipratropium 3 ml 04/03/25 15:37 Albuterol/Ipratropium (Duoneb) Rt Obdulia 3 Ml Nebu INH 05/03/25 15:36 Q2HR PRN SHORTNESS OF BREATH OR WHEEZE Albuterol/Ipratropium 3 ml 04/03/25 19:00 04/05/25 11:13 Albuterol/Ipratropium (Duoneb) Rt Obdulia 3 Ml Nebu INH 05/03/25 18:59 3 ml Q4HRRT BENNETT Administration Aspirin 81 mg 04/04/25 09:00 04/05/25 08:33 Aspirin Ec 81 Mg Tabec PO 05/04/25 08:59 81 mg QDAY BENNETT Administration Atorvastatin Calcium 40 mg 04/04/25 21:00 04/04/25 20:54 Atorvastatin Calcium 20 Mg Tablet PO 05/04/25 20:59 40 mg HS BENNETT Administration Clopidogrel Bisulfate 75 mg 04/04/25 09:00 04/05/25 08:33 Clopidogrel Bisulfate 75 Mg Tablet PO 05/04/25 08:59 75 mg DAILY BENNETT Administration Dextrose 25 ml 04/03/25 15:18 Dextrose 50%-Water Inj 50 Ml Syringe IV 05/03/25 15:17 Q15MIN PRN BG 50-70 responsive npo pt Dextrose 50 ml 04/03/25 15:18 Dextrose 50%-Water Inj 50 Ml Syringe IV 05/03/25 15:17 Q15MIN PRN BG <50 OR BG <70 & pt unresponsive Glucagon 1 mg 04/03/25 15:18 Glucagon Inj 1 Mg Vial IM Q15MIN PRN BG <70, and no IV access Ceftriaxone Sodium/Dextrose 1 gm in 50 mls @ 100 mls/hr 04/04/25 09:00 04/05/25 08:32 Rocephin/D5w 1gm Iv Premix IV 04/08/25 09:29 100 mls/hr QDAY EBNNETT Administration Insulin Human Lispro 0 unit 04/03/25 17:00 04/05/25 11:30 Insulin Lispro (Admelog) 1 Unit/0.01 Ml Unit SC 05/03/25 16:59 2 unit ACHS BENNETT Administration Protocol Metoprolol Tartrate 25 mg 04/04/25 21:00 04/05/25 08:34 Metoprolol Tartrate 25 Mg Tablet PO 05/04/25 20:59 Not Given BID BENNETT Ondansetron HCl 4 mg 04/03/25 19:43 Ondansetron Inj 2 Mg/Ml Inj 2 Ml IVP 05/03/25 19:42 Q6HR PRN NAUSEA OR VOMITING Protocol Pantoprazole Sodium 40 mg 04/04/25 09:00 04/05/25 08:33 Pantoprazole 40 Mg Tablet PO 05/04/25 08:59 40 mg QDAY BENNETT Administration Pregabalin 50 mg 04/04/25 09:00 04/05/25 08:33 Pregabalin 50 Mg Capsule PO 05/04/25 08:59 50 mg QDAY BENNETT Administration Sennosides 1 tab 04/05/25 09:00 04/05/25 08:34 Senna Tablet PO 05/05/25 08:59 1 tab QDAY BENNETT Administration Protocol Zolpidem Tartrate 10 mg 04/03/25 19:43 04/04/25 20:54 Zolpidem 5 Mg Tablet PO 05/03/25 19:42 10 mg HS PRN Administration INSOMNIA
--- NOTE | 2025-04-05 12:59 | PD.IMPROG ---
Documentation for date of: 04/05/25 Subjective Subjective Interval history: Patient comfortable no chest pain noted right groin appears to have normal hematoma ecchymotic bruising noted Exam Vital Signs Temp Pulse Resp BP Pulse Ox O2 Del Method O2 Flow Rate 97.0 F 96 20 103/67 99 Nasal Cannula 2 04/05/25 12:00 04/05/25 12:00 04/05/25 12:00 04/05/25 12:00 04/05/25 12:00 04/05/25 12:00 04/05/25 12:00 Routine HEENT Exam Head: Present normocephalic and atraumatic Eye: Present EOMI and PERRL ENT: Present mucous membranes moist Routine Neck Exam Neck: Present supple and trachea midline Routine Respiratory Exam Respiratory: Present chest non-tender, lungs clear, normal breath sounds and no resp distress Routine Cardiovascular Exam Cardiovascular: Present RRR Routine Abdominal Exam Abdominal: Present soft and normoactive bowel sounds Routine Extremities Exam Extremities: Present full ROM Routine Skin Exam Skin: Present intact, dry and warm Routine Neurological Exam Neurological: Present alert, oriented X3 and CN II-XII intact Routine Psychiatric Exam Psychiatric: Present normal affect and normal thought process Objective Labs 04/05/25 04:50 04/05/25 04:50 Labs: Laboratory Results - last 24 hr 04/04/25 04/05/25 04:48 04:50 WBC 15.3 H RBC 4.08 L Hgb 13.3 L Hct 39.7 L MCV 97 MCH 32.6 MCHC 33.5 RDW Std Deviation 49.9 H Plt Count 192 Neut % (Auto) 75 Lymph % (Auto) 13 [place] % (Auto) 11 Eos % (Auto) 1 Baso % (Auto) 0 Neut # (Auto) 11.5 H Lymph # (Auto) 1.9 [place] # (Auto) 1.6 H Eos # (Auto) 0.1 Baso # (Auto) 0.1 Immature Gran # (Auto) 0.10 H Absolute Nucleated RBC 0.00 Immature Gran % 1 H Nucleated RBC % 0 Sodium 143 Potassium 3.5 Chloride 105 Carbon Dioxide 29.0 Anion Gap 9 BUN 11 Creatinine 0.9 Estim Creat Clear Calc 58.4 L eGFR > 60 BUN/Creatinine Ratio 12 Glucose 161 H Calculated Osmolality 287 Calcium 8.6 Corrected Calcium 9.1 Magnesium 2.0 Total Bilirubin 1.1 AST 111 H ALT 38 Alkaline Phosphatase 59 Total Protein 5.1 L Albumin 3.4 Globulin 1.7 L Albumin/Globulin Ratio 2.0 TSH 0.51 L Free T4 1.31 Assessment & Plan A&P Narrative Continue aspirin Plavix Lipitor metoprolol Time Spent With Patient Time: Total time spent is greater than 50% in coordination of care (as documented) at patient's floor/unit and/or counseling patient:
--- NOTE | 2025-04-05 14:07 | ESDS_ITS ---
Planned Discharge Date 04/05/25 DS: Providers Provider Date of admission: 04/03/25 12:42 Primary care physician: Laly Robles Admitting Provider: Fabio Rudolph DO Attending Provider on Admission: Viktoria Hope MD Consults: 04/04/25 15:19 PT [Referral Physical Therapy] Routine Comment: Physician Instructions: Attending Provider on DC: Fabio Rudolph DO Discharging Provider: Joe Solares DO Anticipated date of discharge: 04/05/25 DS: Diagnosis Problem List Completed Was Problem List Reviewed/Reconciled?: Yes Hospital Course Hospital Course Hospital course: Reason for hospitalization: Acute myocardial infarction Summary: This patient is a 79-year-old male with a past medical history of T2DM, HTN, and HLD who presented to [facility] ED on 04/03 due to chest pain that started about 3 days prior to admission. Patient was admitted for management of acute myocardial infarction. The chest pain was noted to be located in the left side with radiation to the left shoulder. At time of admission, the patient's vitals were stable, however troponin was noted to be significantly elevated at 11.928 with EKG showing 0.[address] elevation in lead III per cardiology, which prompted STEMI alert and the patient was taken to [facility] for emergency cardiac catheterization. During the procedure, it was noted that the patient had 100% occlusion in the midsegment of the right coronary artery. As result, balloon angioplasty and stent placement was performed on the right coronary artery. However, patient was noted to become bradycardic and was placed on temporary pacer, where he developed A-fib. As a result, the patient was taken to the ICU, where he was also noted that the patient had a large right groin hematoma. The groin hematoma was successfully treated with Integrilin and ICU team ordered ultrasound of right femoral artery, which did not show any pseudoaneurysm. Additionally, the patient was started on aspirin, clopidogrel, and metoprolol for medical management after PCI and stent placement, to which the patient tolerated during this hospitalization. The patient did have some dyspnea during ICU stay, which improved after Lasix and nebulizer treatment. Due to patient's stability, the patient was downgraded to medical floors on 04/04. The patient had no further complications and continued to tolerate DAPT with beta claude therapy, so the patient was cleared to be discharged on 04/05 back to home with self care. The patient was advised to follow up with Dr. Nguyen within 1 week for re-assessment in the clinic. The patient was discharged without further antibiotics as suspicion for pneumonia was low on discharge. 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 Nguyen (ferry boat captain) in 1 week for your recent heart attack with stent placement - Follow up with PCP within 1 week of discharge - Continue rest of medications as previously prescribed - Return to the ED or call EMS if symptoms return and/or worsen If you don't have a PCP, you can make an appointment at the [facility]: [address] [facility] [address] [place] [address] Hospital Diagnoses: #Acute myocardial infarction #STEMI type I #Coronary artery disease status post PCI with angioplasty and stent to RCA 04/03 #Atrial fibrillation #Leukocytosis, reactive versus infectious #Transaminitis #[id number] type 2 diabetes mellitus #Right groin hematoma, resolving #Hyperlipidemia #Hypertension, primary Patient plan of care was discussed with attending physician Dr. Klaudia Solares, PGY-1 Status at Discharge Overall status at discharge: patient is back to baseline Time Spent with Patient Time attestation: Total time spent providing and/or coordinating discharge services: Time spent: Greater than 30 minutes Exam Vital Signs Temp Pulse Resp BP Pulse Ox O2 Del Method O2 Flow Rate 97.0 F 96 20 103/67 99 Nasal Cannula 2 04/05/25 12:04/05/25 12:04/05/25 12:04/05/25 12:04/05/25 12:04/05/25 12:04/05/25 12:00 Narrative Exam General: Alert, no acute distress. Skin: Warm, dry, intact. Head: Normocephalic, atraumatic. Eye: Normal conjunctiva, PERRL. Cardiovascular: Regular rate and rhythm, no murmur, +S1/S2. Respiratory: Lungs are clear to auscultation, respirations unlabored, no crackles, no wheezing. Gastrointestinal: Soft, nontender, non-distended. No guarding or rebound tenderness. Extremities: No edema, no cyanosis, no clubbing. Neuro: No focal deficits observed. Conversant, moving all extremities. No overt cerebellar signs/incoordination. Psychiatric: Cooperative, appropriate affect. 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 Nguyen (ferry boat captain) in 1 week for your recent heart attack with stent placement Please follow-up with your PCP within 1 week of discharge or follow-up at the [address] [place] [address] If your symptoms worsen or if you develop new chest pain, shortness of breath, dizziness or loss of consciousness - please come back to the ED immediately. Prescriptions/Referrals Prescriptions/Med Rec: New metoprolol tartrate 25 mg Tablet 25 mg PO BID 30 Days Qty: 60 0RF clopidogrel 75 mg Tablet 75 mg PO DAILY 30 Days Qty: 30 0RF aspirin 81 mg Tablet,Delayed Release (Dr/Ec) 81 mg PO QDAY 30 Days Qty: 30 0RF metformin 500 mg tablet extended release 24 hr 500 mg PO BID 30 Days Qty: 60 0RF atorvastatin 80 mg tablet 80 mg PO HS 30 Days Qty: 30 0RF Continued zolpidem 10 mg Tablet 10 mg PO HS PRN (Reason: Insomnia) multivitamin [One Daily Multivitamin] Tablet 1 tab PO QDAY Patient Comments: take 1 tablet by mouth once daily pregabalin [Lyrica] 50 mg capsule 50 mg PO QDAY acetaminophen 325 mg capsule 325 mg PO Q6H PRN (Reason: fever or pain) Patient Comments: states he takes prn, 1-2 tab when needed Discontinued metformin 500 mg Tablet 500 mg PO QDAY Patient Comments: states he vomited after albuterol sulfate [Ventolin HFA] 90 mcg/actuation Hfa Aerosol Inhaler 1 - 2 inh INHALATION QID PRN (Reason: Shortness Of Breath Or Wheezing) ondansetron 4 mg tablet,disintegrating 4 mg PO Q6H PRN (Reason: n/v) atorvastatin 20 mg tablet 20 mg PO QDAY Referrals: Laly Robles [Primary Care Provider] Juanis Nguyen MD [Physician, Cardiology] Patient/Caregiver Discharge Instructions Education Materials: Diabetes and Heart Disease, Low-Salt Choices, Exercise for a Healthier Heart Print Language: Northern Irish Stand Alone Forms: [employer] Award Info., Patient Portal Info Letter Discharge Order Discharge Orders: Discharge (Routine); Ordered 04/05/25 Ordered By: Randell Trejo Quality Discharge Quality Measures VTE prophylaxis MD Attestestation MD Attestation I have discussed and was present for the essential components of the discharge history, physical examination, diagnosis, and discharge treatment plan with the resident. I agree with the patient's discharge care as documented by the resident and amended herein by me. Kuldeep Rudolph DO. The patient understood all discharge instructions, all questions were answered satisfactorily. The patient was instructed to return to the Emergency Department is symptoms worsened or persisted. Although this document has been carefully reviewed, there may still be some phonetic and other typographical errors. These errors are purely grammatical due to imperfections in the software program and should not be construed in any way to compromise the substance of the patient's medical care during this visit.
--- NOTE | 2025-04-05 14:44 | PC.NURSE ---
Discharge pending family returning for education calls to number provided by patient [phone]) went unanswered.
[2025-04-05 21:14] LABS: Hepatitis B Surface Antigen Non Reactive (Non React)
[2025-04-05 21:35] LABS: Hepatitis A Antibody IgM Non Reactive (Non React); Hepatitis B Core Antibody IgM Non Reactive (Non React); Hepatitis C Antibody Non Reactive (Non React)
== END 2025-04-05 16:18 | disposition home or self-care (01) | DRG 322 ==
LOC: SERX 12:22 → S1WX 14:30 → S2SX 14:47 → S2NX 04-04 14:51
PROVIDERS: Internal Medicine; Nurse Practitioner Family; Admitting Provider Student in an Organized Health Care Education/Training Program; Emergency Provider Emergency Medicine; PCP Physician Assistant; Visit Provider Internal Medicine
DX: I21.3 ST elevation (STEMI) myocardial infarction of unspecified site (principal); I25.10 Atherosclerotic heart disease of native coronary artery without angina pectoris; E78.5 Hyperlipidemia, unspecified; I10 Essential (primary) hypertension; E11.9 Type 2 diabetes mellitus without complications; I48.91 Unspecified atrial fibrillation; S30.1XXA Contusion of abdominal wall, initial encounter; Z79.02 Long term (current) use of antithrombotics/antiplatelets; Z79.82 Long term (current) use of aspirin; Z79.84 Long term (current) use of oral hypoglycemic drugs; Z79.899 Other long term (current) drug therapy; R74.01 Elevation of levels of liver transaminase levels; Z86.16 Personal history of COVID-19
CPT/HCPCS: 36415; 71046; 80053; 80061; 80074; 81001; 83036; 83735; 83880; 84439; 84443; 84484; 85025; 85610; 85730; 87081; 93005; 93926; 94640; 94664; 97162; 99152; 99153; A4649; A9270; C1725; C1730; C1760; C1769; C1874; C1887; C1894; J0153; J0168; J0461; J0583; J0696; J1265; J1327; J1643; J1644; J1815; J1938; J2250; J2270; J2312; J2371; J2405; J3010; J3490; Q9967; J2305